=== PATIENT | female | born 1965 | race Caucasian/White ===

== ENCOUNTER → 2018-06-29 10:28 | Outpatient (CLI) | payer OTHER, SELFPAY | PROVIDERS: Family Provider Physician Assistant; PCP Physician Assistant; Referring Provider Surgery; Visit Provider Surgery | DX: Z53.9 Procedure and treatment not carried out, unspecified reason (principal) ==

== ENCOUNTER → 2019-01-02 15:01 | Outpatient (CLI) | payer OTHER, SELFPAY ==
--- NOTE | 2019-01-02 15:07 | VDLE_ITS ---
Reason For Study: Right leg edema RIGHT GSV is normal. CFV is compressible, spontaneous, phasic, competent and demonstrates normal augmentation. FV is compressible, spontaneous, phasic, competent and demonstrates normal augmentation. POP V is compressible, spontaneous, phasic, competent and demonstrates normal augmentation. T/P Trunk is compressible. PTV is compressible. RT PerV is compressible. Large nonvascularized structure noted in the popliteal fossa measuring approximently 2.7 x 0.99 cm. Procedure Exam performed in department. A preliminary report was called and/or faxed to [facility]. Interpretation Summary There is no evidence of right lower extremity deep vein thrombosis. Right great saphenous vein appears patent and compressible segmentally. Irregular right popliteal fossa 2.7 x 0.99cm non- vascular structure suspicous for complex Walker's cyst--clinical correlation would be appropriate Ordering Physician: Trey Sauer Referring Physician: Linwood Maldonado Performed By: Diana Jeffery RVT
== END ==
PROVIDERS: Family Provider Physician Assistant; PCP Physician Assistant; Referring Provider Family Medicine; Visit Provider Family Medicine
DX: R60.9 Edema, unspecified (principal)
CPT/HCPCS: 93971

== ENCOUNTER → 2021-12-31 | Outpatient (CLI) | payer OTHER, SELFPAY ==
[2021-12-31 16:42] LABS: T4 Free Direct 1.19 ng/dL (0.76-1.46); Thyroid Stim Hormone (TSH) 1.41 uIU/mL (0.358-3.74)
== END | disposition home or self-care (01) ==
PROVIDERS: PCP Internal Medicine; Referring Provider Internal Medicine; Visit Provider Internal Medicine
DX: F32.A Depression, unspecified (principal); F41.9 Anxiety disorder, unspecified
CPT/HCPCS: 36415; 84439; 84443

== ENCOUNTER → 2022-01-14 | Outpatient (CLI) | payer OTHER, SELFPAY ==
--- NOTE | 2022-01-14 13:46 | SP.MBSS_ITS ---
Modified Barium Swallow - Patient Information Study Date: 01/14/22 Study Time: 13:00 Direct Billable Minutes: 90 Total Minutes procedure & reportin Diagnosis: Dysphagia (R13.10), GERD (K21.9) Referring Physician: Kiel Whitten Reason for Referral: Objectively assess swallow function, risk for aspiration, and determine recommendations for least restrictive diet textures and compensatory strategies to improve safety of swallow. Medical History: The patient is a 56-year-old female who reports concern for sensation of pharyngeal/esophageal retention of food versus globus sensation from reflux. The patient reports having decreased globus sensation since initiating medication for GERD and anxiety in November 2021. Appetite has also improved since taking medications. She denied coughing when consuming food or drink. PMH includes GERD, Swallowing difficulty, Early satiety, Loss of appetite, Anxiety and depression, and Hypertension. Current Diet Ordered: Regular textures / Thin liquids Dentition: WNL Mental Status: WNL Respiratory Status: Oxygenating on Room Air - Penetration-Aspiration Scale Penetration-Aspiration Scale: OBJECTIVE ASSESSMENT OF SWALLOW FUNCTION (QUANTITATIVE ? PER TRIAL): PENETRATION / ASPIRATION SCALE (ZHOU): 1 = does not enter airway 2 = enters airway/above vocal folds/ejected 3 = enters airway/above vocal folds/not ejected 4 = enters airway/contacts vocal folds/ejected 5 = enters airway/contacts vocal folds/not ejected 6 = enters airway/below vocal folds/ejected 7 = enters airway/below vocal folds/not ejected despite effort 8 = enters airway/below vocal folds/no effort VIDEOFLOROSCOPIC SCALE SCORE (ZHOU): Grade I = aspiration of material that has penetrated into the laryngeal vestibule, intact cough reflex Grade II = aspiration < 10 % of the bolus, intact cough reflex Grade III = aspiration of < 10 % of the bolus, reduced cough reflex or aspiration of > 10 % of the bolus, intact cough reflex Grade IV = aspiration of > 10 % of the bolus, reduced cough reflex - Penetration-Aspiration Scale Score Thin Liquid via teaspoon Result: 1= does not enter airway Thin Liquid via teaspoon Trial 2 Result: 1= does not enter airway Thin Liquid via small single sip from cup Result: 1= does not enter airway Thin Liquid via sequential sips from cup Result: 2= enter airway/above vocal folds/ejected [place] Thick Liquid via small single sip from cup Result: 1= does not enter airway [place] Thick Liquid via small single sip from cup Result: 1= does not enter airway Pudding via teaspoon with esophageal screen Result: 1= does not enter airway Thin liquid via straw with esophageal screen Result: 1= does not enter airway 1/2 Cookie with esophageal screen Result: 1= does not enter airway - Oral Phase Labial Seal: No Labial Escape Tongue Control During Bolus Hold: Posterior escape of less than half of bolus Bolus Preparation/Mastication: Timely and efficient chewing and mashing Bolus Transport/Lingual Motion: Brisk tongue motion Oral Residue: Trace residue lining oral structures - Pharyngeal Phase Initiation of Pharyngeal Swallow: Bolus head at posterior laryngeal surgace of epiglottis Soft Palate Elevation: No bolus between soft palate and pharyngeal wall Laryngeal Elevation: Comp. Superior move thyroid cart w/comp. apprx arytenoid cart-epig pet Anterior Hyoid Excursion: Complete anterior movement Epiglottic Movement: Complete inversion Laryngeal Vestibule Closure at Height of Swallow: Incomplete; narrow column of air/contrast in laryngeal vestibule - trace laryngeal penetration with full ej ection sequential thin Pharyngeal Stripping Wave: Present - complete Pharyngoesophageal Segment Opening: Complete distension and complete duration; no obstruction of flow Tongue Base Retraction: Trace column of contrast between tongue base & post. pharyngeal wall Pharyngeal Residue: Trace residue within or on pharyngeal structures - Esophageal Phase Esophageal Clearance: Esophageal retention - Diagnosis/Impression Diagnosis: Oropharyngeal swallow function WNL Impression: The patient presents with oropharyngeal swallow function grossly WNL. Min posterior loss of thin liquids to the posterior surface of the epiglottis prior to swallow onset. The patient demonstrates good airway closure throughout the study. No aspiration observed. Trace laryngeal penetration with full ejection of sequential sips of thin liquids via cup. Trace retention of pudding in upper esophagus. Mild esophageal retention of pudding and cookie in mid esophagus. Thin liquid wash was used to effectively clear mild retention of pudding contrast. - Recommendations Diet: Regular Textures, Thin Liquids Compensatory Strategies: Small Bites, Small Sips, Slow Rate, Alternate bites/solids and sips/liquids, Sitting upright, Remain sitting upright for 30 minutes after PO intake Recommend Repeat Modified Barium Swallow: No Need for Skilled Speech Therapy Services: No Recommended Referrals: GI Consult - Follow up with PCP, mild esophageal retention effectively cleared with liquid wash - continued management of reflux. Consider GI consult to address mild deficits in esophageal clearance. Education Completed: 1. Described result of evaluation., 2. Pt understands evaluation & agrees with goals and treatment plan., 4. Family/caregivers understand evaluation & agree w/ goals & tx plan. - Status Active ST Patient: Active - Contact Information [facility] Speech Therapy:: Vika Henson M.A. [facility] Speech-Language Pathologist [facility] [address] [place] [address] [email or web address] [phone] 01/14/22 13:59
== END | disposition home or self-care (01) ==
PROVIDERS: PCP Internal Medicine; Visit Provider Internal Medicine
DX: R13.10 Dysphagia, unspecified (principal)
CPT/HCPCS: 74230; 92611

== ENCOUNTER → 2022-01-19 | Outpatient (CLI) | payer OTHER, SELFPAY ==
--- NOTE | 2022-01-19 11:52 | NM_ITS ---
CLINICAL: 56-year-old female with history of anorexia and early satiety. SEMI-SOLID PHASE 99m Tc SULFUR COLLOID GASTRIC EMPTYING STUDY COMPARISON: None available FINDINGS: The patient was administered 1.0 mCi of 99m Tc sulfur colloid mixed with oatmeal and consumed per os. Image acquisitions in the anterior-posterior projections were obtained for 60 minutes. There is prompt visualization of the stomach. There is no gastroesophageal reflux identified. The T ? emptying was calculated to be 16.66 minutes, (Normal: 12-56 minutes). NM/Gastric Emptying Study IMPRESSION: 1. NORMAL 99m Tc sulfur colloid semi-solid phase (oatmeal) gastric emptying imaging examination. A. There is normal and preserved semi-solid phase gastric emptying compared to normal controls. (Narda et al, J Nucl Med Tech 38: 186, 2010). Electronically Signed: Troy Nuno, at 10:42 EST ,
== END | disposition home or self-care (01) ==
PROVIDERS: PCP Internal Medicine; Visit Provider Internal Medicine
DX: R63.0 Anorexia (principal); R68.81 Early satiety
CPT/HCPCS: 78264; A9541

== ENCOUNTER → 2022-02-09 | Outpatient (CLI) | payer OTHER, SELFPAY ==
--- NOTE | 2022-02-09 15:07 | BI_ITS ---
MAMMOGRAPHY - BILATERAL SCREENING REASON FOR EXAM: Female, 56 years old. Routine annual screening examination. PERTINENT HISTORY: Non-contributory. TECHNIQUE: Digital bilateral breast alejandra (3D mammographic acquisition) in the CC and MLO projections. 2-D mediolateral oblique (MLO) and craniocaudad (CC) views of both breasts were obtained. CAD: Full Field Digital Mammography with Computer Added Detection was performed. COMPARISON: Comparison is made with prior outside examination dated 01/29/2021 and 01/24/2020. FINDINGS: Breast Composition: There are scattered areas of fibroglandular density. There are no dominant masses or suspicious calcifications. Stable small benign-appearing bilateral axillary lymph nodes No other significant abnormalities are identified. There has been no significant change since the prior study. BI/SCRN MAMM (CAD)W/ALEJANDRA BILAT IMPRESSION: Stable bilateral screening mammogram. Yearly follow-up mammogram recommended. (A) ASSESSMENT CATEGORY: BIRADS Category 2: Benign. A letter regarding these results will be sent to the patient by the facility within 30 days. Approximately 10% of breast cancers are not detected by mammography. A normal mammogram should not delay biopsy of a clinically suspicious abnormality. [id number] Electronically Signed: Dusty Camilo MD at 8:13 EST ,
== END | disposition home or self-care (01) ==
LOC: OPBI 15:06
PROVIDERS: PCP Internal Medicine; Visit Provider Registered Nurse
DX: Z12.31 Encounter for screening mammogram for malignant neoplasm of breast (principal)
CPT/HCPCS: 77063; 77067

== ENCOUNTER → 2022-12-05 | Outpatient (CLI) | payer OTHER, SELFPAY ==
[2022-12-05 15:15] LABS: Absolute Lymphocyte Count 2.23 X10^3/uL (0.83-4.51); Absolute Neutrophil Count 2.8 X10^3/uL (2.0-7.7); Basophil# 0.03 X10^3/uL; Basophil% 0.5 % (0-1); Eosinophil# 0.15 X10^3/uL; Eosinophils% 2.6 % (0-5); Hematocrit 41.3 % (37-47); Hemoglobin 13.2 g/dL (12.0-15.0); Lymphocyte # 2.23 X10^3/ul (0.83-4.51); Lymphocyte % 38.9 % (19-41); Mean Corpuscular Hgb 28.3 pg (27.0-32.0); Mean Corpuscular Volume 88.4 fL (81-99); Mean Platelet Vol. 10.1 fl (6.2-12.0); Monocyte# 0.54 X10^3/uL; Monocyte% 9.4 % (0-10); NRBC Flagged by Analyzer 0 % (0-5); Neutrophil # 2.77 X10^3/uL (2.7-7.7); Neutrophil % 48.3 % (47-70); Platelet Count 347 K/mm3 (150-450); RBC Distribution Width CV 12.6 % (11.6-14.6); RBC Distribution Width SD 40.6 fl (35.1-43.9); Red Blood Count 4.67 M/mm3 (4.2-5.4); White Blood Count 5.7 K/mm3 (4.4-11.0)
[2022-12-05 15:55] LABS: ALB/GLOB Ratio 1.3 RATIO (0.9-2.4); AST(SGOT) 15 U/L (15-37); Alanine Aminotransfer ALT/SGPT 26 U/L (13-56); Albumin, Serum 4.1 g/dL (3.2-5.0); Alkaline Phosphatase 58 U/L (45-117); Anion Gap 6 (5-15); BUN 25 mg/dL (7-18); BUN/Creat Ratio 34.2 RATIO (10-20); Calcium,Total 9.5 mg/dL (8.5-10.1); Chloride 105 mmol/L (98-107); Cholesterol 222 mg/dL (200); Creatinine, Serum 0.73 mg/dL (0.55-1.02); EST Glomerular Filtration Rate 87 mL/min (>60); Est Glom Filt Rate - Afr Amer 105 mL/min (>60); Globulin 3.2 g/dL (2.2-4.2); Glucose 75 mg/dL (74-106); High Density Lipoprotein 75 mg/dL; Protein, Total 7.3 g/dL (6.4-8.2); Sodium Level 138 mmol/L (136-145); Triglycerides 91 mg/dL; Very Low Density Lipoprotein 18 mg/dL (5-40)
== END | disposition home or self-care (01) ==
LOC: BIMLAB 11:53
PROVIDERS: PCP Internal Medicine; Referring Provider Internal Medicine; Visit Provider Internal Medicine
DX: I10 Essential (primary) hypertension (principal)
CPT/HCPCS: 36415; 80053; 80061; 85025

== ENCOUNTER → 2023-03-17 | Outpatient (CLI) | payer BC, SELFPAY ==
--- NOTE | 2023-03-17 10:21 | BI_ITS ---
MAMMOGRAPHY - BILATERAL SCREENING REASON FOR EXAM: Female, 57 years old. Routine annual screening examination. PERTINENT HISTORY: Non-contributory. TECHNIQUE: Digital bilateral breast alejandra (3D mammographic acquisition) in the CC and MLO projections. 2-D mediolateral oblique (MLO) and craniocaudad (CC) views of both breasts were obtained. CAD: Full Field Digital Mammography with Computer Added Detection was performed. COMPARISON: Comparison is made with prior study February 09, 2022. FINDINGS: Breast Composition: There are scattered areas of fibroglandular density. There are no dominant masses or suspicious calcifications. Stable small benign appearing bilateral axillary lymph nodes. No other significant abnormalities are identified. There has been no significant change since the prior study. BI/SCRN MAMM (CAD)W/ALEJANDRA BILAT IMPRESSION: Stable bilateral screening mammogram. Yearly follow-up mammogram recommended. (A) ASSESSMENT CATEGORY: BIRADS Category 2: Benign. A letter regarding these results will be sent to the patient by the facility within 30 days. Approximately 10% of breast cancers are not detected by mammography. A normal mammogram should not delay biopsy of a clinically suspicious abnormality. [id number] Electronically Signed: Dusty Camilo MD at 13:49 EST ,
--- OUTSIDE RECORDS SUMMARY | 2023-03-17 10:24 | XMS RPT_ITS | CCD ---
Author Name Unknown Address [facility] [address] [place] [address] Organization [facility] Care Team Providers Care Motivational Speaker Name Role Phone MAHDI, EUNICE Unavailable Unavailable MAHDI, EUNICE Unavailable Unavailable MAHDI, EUNICE Unavailable Unavailable MAHDI, EUNICE Unavailable Unavailable Darius Maldonado PA-C Primary Care Provider [phone] Darius Maldonado PA-C Primary Care Provider [phone] Darius Maldonado PA-C Primary Care Provider [phone] Allergies Allergy Classification Reported Allergen(s) Allergy Type Date of Onset Reaction(s) Facility (14 sources) Lisinopril Drug Allergy 9 Intolerance [facility] Work Phone: (14 sources) Seasonal allergy Allergy to substance 9 Other: See Comments [facility] Work Phone: Medications Current Medications Medication Drug Class(es) Dates Sig (Normalized) Sig (Original) LORazepam 0.5 mg oral tablet (2 sources) Benzodiazepine Start: 12-17-2021 End: 12-24-2021 take 1 tablet by mouth twice daily as needed for anxiety LORazepam (ATIVAN) 0.5 mg Indications: Globus pharyngeus , Chronic anxiety Take 1 tablet by mouth twice daily as needed (anxiety/ pressure in throat) for up to 7 days. 14 tablet 0 12/17/2021 12/24/2021 Active Completed/Discontinued Medications Medication Drug Class(es) Dates Sig (Normalized) Sig (Original) DAILY MULTI-VITAMINS/IRON TAB (14 sources) Start: 02-03-2005 DAILY MULTI-VITAMINS/IRON TAB 24 hr desvenlafaxine succinate 25 mg extended release oral tablet (2 sources) Serotonin and Norepinephrine Reuptake Inhibitor Start: 12-10-2021 End: 12-13-2021 take 1 tablet by mouth once daily desvenlafaxine ER (PRISTIQ) 25 mg 24 hr tablet Indications: Chronic anxiety Take 1 tablet by mouth once daily. 30 tablet 2 12/10/2021 12/13/2021 Discontinued Problems Active Problems Problem Classification Problem Date Documented Date Episodic/Chronic Abdominal hernia (14 sources) Diaphragmatic hernia; Translations: [Diaphragmatic hernia without obstruction or gangrene] 11-23-2007 Episodic Abdominal pain (3 sources) Right upper quadrant pain; Translations: [Right upper quadrant pain] Episodic Anxiety disorders (17 sources) Chronic anxiety; Translations: [Anxiety disorder, unspecified] Onset: 09-13-2016 Chronic Cardiac dysrhythmias (2 sources) Bradycardia; Translations: [Bradycardia, unspecified] Episodic Conduction disorders (16 sources) Left bundle branch block; Translations: [Left bundle-branch block, unspecified] Onset: 11-04-2016 11-04-2016 Chronic Diabetes mellitus without complication (2 sources) Hyperglycemia; Translations: [Hyperglycemia, unspecified] Episodic Disorders of lipid metabolism (2 sources) Mixed hyperlipidemia; Translations: [Mixed hyperlipidemia] Chronic Essential hypertension (18 sources) Essential hypertension; Translations: [Essential (primary) hypertension] Onset: 07-13-2018 Chronic Immunizations and screening for infectious disease (1 source) Needs influenza immunization; Translations: [Encounter for immunization] Episodic Miscellaneous mental health disorders (14 sources) Chronic insomnia; Translations: [Psychophysiologic insomnia] Onset: 09-19-2016 09-19-2016 Chronic Nutritional deficiencies (16 sources) Vitamin D deficiency; Translations: [Vitamin D deficiency, unspecified] Onset: 09-13-2016 Chronic Other circulatory disease (1 source) Feeling of lump in throat; Translations: [Other specified symptoms and signs involving the circulatory and respiratory systems] Episodic Other connective tissue disease (2 sources) Swelling of bilateral feet; Translations: [Other specified soft tissue disorders] Episodic Other nutritional; endocrine; and metabolic disorders (14 sources) Constitutional obesity; Translations: [Other obesity] Onset: 03-05-2015 03-05-2015 Chronic Other screening for suspected conditions (not mental disorders or infectious disease) (1 source) Patient encounter status; Translations: [Encounter for screening mammogram for malignant neoplasm of breast] 02-01-2023 Episodic Polina-; endo-; and myocarditis; cardiomyopathy (except that caused by tuberculosis or sexually transmitted disease) (17 sources) Dilated cardiomyopathy; Translations: [Dilated cardiomyopathy] Onset: 12-06-2019 Chronic Pulmonary heart disease (17 sources) Pulmonary hypertension, unspecified; Translations: [Other chronic pulmonary heart diseases] Onset: 12-06-2019 Chronic Unclassified (1 source) Unknown / UNK(Unknown) Onset: 12-07-2016 Past or Other Problems Problem Classification Problem Date Documented Da te Episodic/Chronic Other and unspecified benign neoplasm (14 sources) Adenomatous polyp of colon ; Translations: [Benign neoplasm of transverse colon] Onset: 09-13-2016 12-09-2019 Episodic Other and unspecified benign neoplasm (14 sources) History of polyp of colon; Translations: [Personal history of colonic polyps] Onset: 07-13-2018 07-13-2018 Episodic Other gastrointestinal disorders (1 source) Intra-abdominal and pelvic swelling, mass and lump, unspecified site; Translations: [Intra-abdominal and pelvic swelling, mass and lump, unspecified site] Onset: 11-17-2016 Episodic Results Test Name Value Interpretation Reference Range Facil ity Vital Signs Date Time Vital Sign Value Performing Clinician Faci lity 12-10-2021 08:38-0400 Diastolic blood pressure 82 mm[Hg] NA Maldonado PA-C Work Phone: [facility] 12-10-2021 08:38-0400 Heart rate 66 /min NA Maldonado PA-C Work Phone: [facility] 12-10-2021 08:38-0400 Respiratory rate 16 /min NA Maldonado PA-C Work Phone: [facility] 12-10-2021 08:38-0400 SaO2% (BldA) [Mass fraction] 98 % NA Maldonado PA-C Work Phone: [facility] 12-10-2021 08:38-0400 Systolic blood pressure 148 mm[Hg] NA Maldonado PA-C Work Phone: [facility] 08-13-2021 14:27-0400 Diastolic blood pressure 84 mm[Hg] Sasha Murrieta APRN.CNP Work Phone: [facility] 08-13-2021 14:27-0400 Heart rate 54 /min Sasha Haagen MOLECULAR BIOLOGY SCIENTIST.[employer] Work Phone: [facility] 08-13-2021 14:27-0400 Systolic blood pressure 147 mm[Hg] Sasha Haagen MOLECULAR BIOLOGY SCIENTIST.[employer]IFTER [employer]ON Work Phone: [facility] 08-13-2021 13:25-0400 Body height 160 cm Sasha Haagen MOLECULAR BIOLOGY SCIENTIST.[employer]ON Work Phone: [facility] 08-13-2021 13:25-0400 Respiratory rate 18 /min Sasha Haagen MOLECULAR BIOLOGY SCIENTIST.[employer] Work Phone: [facility] 08-13-2021 13:25-0400 SaO2% (BldA) [Mass fraction] 96 % Sasha Cowanagen MOLECULAR BIOLOGY SCIENTIST.[employer]ON Work Phone: [facility] 06-25-2021 14:24-0400 Diastolic blood pressure 82 mm[Hg] Tee Pendemma MOLECULAR BIOLOGY SCIENTIST.[employer] Work Phone: [facility] 06-25-2021 14:24-0400 Systolic blood pressure 144 mm[Hg] Tee Corine MOLECULAR BIOLOGY SCIENTIST.[employer] Work Phone: [facility] 06-25-2021 14:05-0400 Body temperature 98.4 [degF] Tee Corine MOLECULAR BIOLOGY SCIENTIST.[employer] Work Phone: [facility] 06-25-2021 14:05-0400 Heart rate 63 /min Tee Corine MOLECULAR BIOLOGY SCIENTIST.[employer] Work Phone: [facility] 06-25-2021 14:05-0400 Respiratory rate 20 /min Tee Corine MOLECULAR BIOLOGY SCIENTIST.[employer]IF[employer]ON Work Phone: [facility] 06-25-2021 14:05-0400 SaO2% (BldA) [Mass fraction] 98 % Tee Pool MOLECULAR BIOLOGY SCIENTIST.[employer]TER [employer]ON Work Phone: [facility] Encounters Encounter Date Encounter Type Care Provider Facility Start: 02-01-2023 ambulatory Darius lyons PA-C Work Phone: [facility] [place] Start: 12-31-2021 End: 12-31-2021 Subsequent hospital visit by physician [facility] Work Phone: Radiology Procedures Date Procedure Procedure Detail Performing Clinician Start: 12-31-2021 Us abdominal real ti me w/image limited Darius Linwood Maldonado PA-C Work Phone: Start: 12-10-2021 INFLUENZA VACCINE QUADRIVALENT 6 MO - 64 YRS IM Darius Linwood Maldonado PA-C Work Phone: Start: 01-29-2021 Mammography NA Joel LEPE Work Phone: Start: 12-04-2019 Lipid 1996 panel - S forrest or Plasma [facility] 2 Work Phone: Start: 08-01-2018 Colonoscopy NA Joel LEPE Work Phone: Start: 11-02-2016 Adult depression scr eening assessment NA Joel [place] Work Phone: Plan of Treatment Date Care Activity Detail Author Start: 12-22-2024 DIABETES SCREEN DIABETES SCREEN [facility] Start: 12-22-2024 Diabetes Screening Diabetes Screenin g [facility] Start: 12-03-2024 Lipid 1996 panel - S forrest or Plasma Lipid Screening [facility] Start: 12-03-2024 LIPID SCREEN LIPID SCREEN [facility] Start: 08-07-2024 DIABETES SCREEN DIABETES SCREEN [facility] Start: 08-02-2023 Colonoscopy COLONOSCOPY [facility] Start: 08-02-2023 COLORECTAL CANCER SCREENING COLORECTAL CANCER SCREENING [facility] Start: 12-17-2022 ANNUAL PCP TEAM CAP MAKER JAMEY DISEASE VISIT ANNUAL PCP TEAM CHRONIC DISEASE VISIT [facility] Start: 12-10-2022 ANNUAL PCP TEAM CAP MAKER JAMEY DISEASE VISIT ANNUAL PCP TEAM CHRONIC DISEASE VISIT [facility] Start: 12-10-2022 COVID-19 VACCINE (4 - Booster for Moderna series) COVID-19 VACCINE (4 - Booster for Moderna series) [facility] Immunizations Immunization Date Immunization Notes Care Provider Fa cility 12-10-2021 influenza, injectabl e, quadrivalent, contains preservative NA Joel LEPE Work Phone: [facility] 12-10-2021 influenza virus vaccine, unspecified formulation [facility] 2 Work Phone: [facility] 04-08-2020 COVID-19 vaccine, fu ll dose (MODERNA) NA Maldonado PA-C Work Phone: [facility] Work Phone: 03-11-2020 COVID-19 vaccine, fu ll dose (MODERNA) NA Maldonado PA-C Work Phone: [facility] Work Phone: 01-04-2020 influenza, injectabl e, quadrivalent, contains preservative NA Maldonado PA-C Work Phone: [facility] 03-29-2017 influenza, injectabl e, quadrivalent, contains preservative NA Maldonado PA-C Work Phone: [facility] Work Phone: 01-09-2013 influenza virus vaccine, unspecified formulation NA Maldonado PA-C Work Phone: [facility] 01-28-2010 influenza virus vaccine, unspecified formulation NA Maldonado PA-C Work Phone: [facility] Work Phone: 12-12-2008 influenza virus vaccine, live, attenuated, for intranasal use NA Maldonado PA-C Work Phone: [facility] Work Phone: 01-25-2008 influenza virus vaccine, live, attenuated, for intranasal use NA Maldonado PA-C Work Phone: [facility] Work Phone: 01-12-2007 influenza virus vaccine, unspecified formulation NA Maldonado PA-C Work Phone: [facility] Work Phone: Payers Date Payer Category Payer Private Health Insurance MARTY BASHIR [id number] 2021-[facility] [phone] [facility] [id number] CHRISTEN ESPINAL [phone] Open Access [id number] 2021 Private Health Insurance MARTY JAMES OAP [id number] 2021-Present [phone] [address] [facility] [place] [address] Open Access [id number] 2020 Unknown [employer] BLUE CARD PPO OOS [id number] 2020-Present [phone] [address] [place] [address] PPO [id number] Social History Date Type Detail Facility Start: 12-10-2021 Tobacco smoking status NHIS Ex-smoker [facility] Start: 01-29-2021 End: 12-10-2021 Alcohol intake Current drinker of alcohol (finding) [facility] Start: 01-29-2021 End: 03-25-2022 Alcohol intake [facility] Start: 07-07-2010 History SDOH Alcohol Comment One to Two Drinks per Week [facility] Start: 07-07-2010 End: 12-10-2021 Tobacco Comment Quit [facility] Start: 1965 Sex Assigned At Not on file [facility] Start: 06-15-2021 End: 12-10-2021 Exposure to SARS-CoV-2 (event) Not sure [facility] Work Phone: History of tobacco use Current smoker [facility] Start: 12-10-2021 Tobacco use and exposure Smokeless tobacco non-user [facility] Start: 12-17-2021 History SDOH Alcohol Frequency 4 [facility] Start: 12-17-2021 History SDOH Alcohol Std Drinks 1 [facility] Start: 12-17-2021 History SDOH Social Connections Phone 5 [facility] Start: 12-17-2021 History SDOH Social Connections Mormon 3 [facility] Start: 12-17-2021 History SDOH Physical Activity DPW 0 [facility] Start: 12-17-2021 History SDOH Transport Med 2 [facility] Start: 12-16-2021 End: 03-25-2022 Social connection and isolation panel [facility] Frequency of Social Gatherings with Friends and Family Not on file [facility] Do you belong to any clubs or organizations such as orthodox groups, unions, fraternal or athletic groups, or school groups? Yes [facility] Are you now , , , , never or living with a partner? [facility] How often to you hav e a drink containing alcohol? 2-3 time sa week [facility] How many standard dr inks containing alcohol do you have on a typical day? 1 or 2 [facility] How often do you hav e 6 or more drinks on 1 occasion? Never [facility] Do you feel stress - tense, restless, nervous, or anxious, or unable to sleep at night because your mind is troubled all the time - these days [OSQ] To some extent [facility] (I/We) worried wheth er (my/our) food would run out before (I/we) got money to buy more. Never true [facility] In the past 12 month s, was there a time when you were not able to pay the mortgage or rent on time? No [facility] Start: 10-11-2020 Gender identity Identifies as female gender (finding) [facility] Start: 12-06-2019 Sexual orientation Heterosexual (finding) [facility] Clinical Notes 11-01-2016 to 02-01-2023 Zunilda Banuelos RDCA - 12/31/2021 8:30 AM EDTTelephone Encounter - Nicole Redman RN - 12/24/2021 10:28 AM EDTTelephone Encounter - Huyen Segovia RN - 12/24/2021 9:44 AM EDT Note Date & Type Note Facility 02-01-2023 Note Patient Outreach (IN TMMN) VALENTINA GALVAN ([id number]) 1965 F Date Time Provider Department 02/01/23 Darius MALDONADO During your visit today, we recorded the following information about you: Allergies As of Date: 02/01/2023 Noted Allergy Reaction LISINOPRIL 08/16/2018 5 - Intolerance Comments: Cough SEASONAL ALLERGIES 07/11/2018 14 - Other: See Comments Comments: watery eyes, runny nose and cough mostly in spring and summer Date Reviewed: 12/10/2021 Reviewed by: Tricia Connors Ma - Fully Assessed Visit Diagnosis:Encounter for screening mammogram for breast cancer [Z12.31] Order(s):[facility] SCREENING [[id number]] Order #: [id number] FUTURE Prescriptions as of 02/06/2023 - PARoxetine (PAXIL) 10 mg tablet Take 1 tablet by mouth once daily. - naproxen sodium (ALEVE) 220 mg cap Take 2 capsules by mouth once daily. - traZODone (DESYREL) 100 mg tablet Take 1 tablet by mouth daily at bedtime. - losartan (COZAAR) 100 mg tablet Take 1 tablet by mouth once daily. - hydroCHLOROthiazide (HYDRODIURIL, ESIDRIX) 12.5 mg capsule Take 1 capsule by mouth once daily. - DAILY MULTI-VITAMINS/IRON TAB Problem List As Of Date 02/01/2023 Noted Resolved DIAPHRAGMATIC HERNIA [K44.9] Special screening for malignant neoplasms, colo*09/25/2014 09/25/2014 Constitutional obesity [E66.8] 03/05/2015 Chronic anxiety [F41.9] 09/13/2016 Adenomatous polyp of transverse colon [D12.3] 09/13/2016 Vitamin D deficiency [E55.9] 09/13/2016 Chronic insomnia [F51.04] 09/19/2016 Pelvic mass [R19.00] 11/01/2016 11/17/2016 LBBB (left bundle branch block) [I44.7] 11/04/2016 Essential hypertension [I10] 07/13/2018 History of colonic polyps [Z86.010] 07/13/2018 Dilated cardiomyopathy (HCC) [I42.0] 12/06/2019 Mild pulmonary hypertension (HCC) [I27.20] 12/06/2019 Encounter Status:Closed by Page Mage, PRODUSER on 02/06/23 [facility] 03-02-2022 Note Patient Outreach (IN TMMN) VALENTINA GALVAN ([id number]) 1965 F Date Time Provider Department 03/02/22 Darius MALDONADO During your visit today, we recorded the following information about you: Allergies As of Date: 03/02/2022 Noted Allergy Reaction LISINOPRIL 08/16/2018 5 - Intolerance Comments: Cough SEASONAL ALLERGIES 07/11/2018 14 - Other: See Comments Comments: watery eyes, runny nose and cough mostly in spring and summer Date Reviewed: 12/10/2021 Reviewed by: Tricia Connors Ma - Fully Assessed Visit Diagnosis:Encounter for screening mammogram for breast cancer [Z12.31] Order(s):[facility] SCREENING [[id number]] Order #: [id number] FUTURE Prescriptions as of 03/07/2022 - PARoxetine (PAXIL) 10 mg tablet Take 1 tablet by mouth once daily. - naproxen sodium (ALEVE) 220 mg cap Take 2 capsules by mouth once daily. - traZODone (DESYREL) 100 mg tablet Take 1 tablet by mouth daily at bedtime. - losartan (COZAAR) 100 mg tablet Take 1 tablet by mouth once daily. - hydroCHLOROthiazide (HYDRODIURIL, ESIDRIX) 12.5 mg capsule Take 1 capsule by mouth once daily. - DAILY MULTI-VITAMINS/IRON TAB Facility-Administered Medications as of 03/07/2022 - perflutren lipid microspheres 1.3 mL in NaCl (PF) 0.9% 10 mL injection (DEFINITY) - sodium chloride 0.9 % (flush) 10 mL (BD POSIFLUSH) Problem List As Of Date 03/02/2022 Noted Resolved DIAPHRAGMATIC HERNIA [K44.9] Special screening for malignant neoplasms, colo*09/25/2014 09/25/2014 Constitutional obesity [E66.8] 03/05/2015 Chronic anxiety [F41.9] 09/13/2016 Adenomatous polyp of transverse colon [D12.3] 09/13/2016 Vitamin D deficiency [E55.9] 09/13/2016 Chronic insomnia [F51.04] 09/19/2016 Pelvic mass [R19.00] 11/01/2016 11/17/2016 LBBB (left bundle branch block) [I44.7] 11/04/2016 Essential hypertension [I10] 07/13/2018 History of colonic polyps [Z86.010] 07/13/2018 Dilated cardiomyopathy (HCC) [I42.0] 12/06/2019 Mild pulmonary hypertension (HCC) [I27.20] 12/06/2019 Encounter Status:Closed by JAYSON PRODUSER on 03/07/22 [facility] 12-31-2021 History of Present illness Narrative Radiology Service Progress Note PATIENT NAME: Valentina Galvan DATE OF SERVICE: December 31, 2021 TIME: 11:08 AM PATIENT IDENTITY VERIFICATION COMPLETED USING TWO (2) IDENTIFIERS: Name and Date of confirmed by patient verbally. FALL SCREENING: Has the patient had 2 falls in the last year or 1 fall with injury or currently using an Ambulatory Assistive Device (Walker, Cane, Wheelchair, Crutches, etc.)? No PATIENT GENDER DATA: Female. status: : No status: NO. PATIENT RELEVANT IMPLANT DATA REVIEWED: Not Applicable RADIOLOGY DEPARTMENT: Ultrasound PERIPHERAL IV DATA: Not applicable SIGNED BY: Zunilda Banuelos RDMS RVT December 31, 2021 11:08 AM documented in this encounter [facility] 12-24-2021 Miscellaneous Notes Ultrasound scheduled for 12/31/2021. Nicole Redman RN Patient calls back and states that she will get the ultrasound done to make sure everything is ok. Patient transferred to master scheduler to set up ultrasound appointment. Huyen Segovia RN TC to pt, she states she did try the Ativan and found it somewhat helpful. She states she feels like she has slowly turned a corner today, not have much of the sensation anymore. She feels it's more related to heartburn. She was on the other line so she will call office back to schedule RUQ us. Kendall Hager LPN Did she try the Ativan? Is there any difficulty swallowing? EGD does look not at the larynx, she would need laryngoscopy for direct visualization. Telephone on 12/22/21 US ABD RT UPPER QUADRANT Thanks, Cristian Maldonado PA-C Patient calls to ask if provider would recommends she try taking Prilosec 40 mg daily d/t symptoms not improving. She continues to have RUQ pain/weakness and globus pharyngeus. Patient asking about having an endoscope completed. Notified patient that lab results are still pending. Nicole Redman RN documented in this encounter [facility] 12-17-2021 History of Present illness Narrative WUTt video visit was used for evaluation of this patient. Location of patient: [place] Patient was offered a virtual/telemedicine appointment in lieu of an office visit due to recommendations to reduce patient exposure to COVID-19. Patient is aware of limitations of performing the visit without a face to face visit in the office setting and agrees. 8:06 AM 56 year old female with c/o nausea Nausea started night of last visit, no vomiting but almost No fever or chills Has had some shaking like if she were ill Feels uvula in back of throat. Feels something that feels obstruction lower in esophagus. Not hungry, early satiety Eating like normal, three times a day: normal size portions but not finishing them completely. 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 No black or tarry stools. Had some bright red on toilet paper once, no rectal pain. Worries about gastroparesis from internet search. Omeprazole 20mg AC day #4 with a l Pain in right of belly button, feel superficial like skin tenderness but radiates to back Recently resumed paroxetine and Trazedone Asking for H.Pylori Takes Aleve 2 tabs daily. Worried about scar tissue from prior surgery causing obstruction. Feels a little bit better this morning HISTORIES FAMILY HISTORY Problem Relation Age of Onset Hypertension Mother Hyperlipidemia Mother Psychiatry Mother depression Alzheimer's Disease Mother Hypertension Father Cancer Father COLON/skin Colon Cancer Father Stroke Maternal Grandmother Cancer Maternal Grandfather skin Hearing Loss Paternal Grandfather Cancer Paternal Grandfather skin Cancer Maternal Uncle liver Hypertension Sister PAST MEDICAL HISTORY Diagnosis Date Acute gastritis without mention of hemorrhage Allergic rhinitis Colon polyps 04/08/[address] [facility] [address] Monk Diaphragmatic hernia without mention of obstruction or gangrene HTN (hypertension) IBS (irritable bowel syndrome) Internal hemorrhoid Left bundle branch block Other anxiety states PMH - PAST MEDICAL HISTORY OF back discomfort and left knee PAST SURGICAL HISTORY Procedure Laterality Date DELIVERY+ CARE had two COLONOSCOPY FLX DX W/COLLJ SPEC WHEN PFRMD 09/25/14 Colonoscopy COLONOSCOPY FLX DX W/COLLJ SPEC WHEN PFRMD 04/08/2015 Colonoscopy (MAC) COLONOSCOPY FLX DX W/COLLJ SPEC WHEN PFRMD 08/01/2018 Colonoscopy ESOPHAGOGASTRODUODENOSCOPY TRANSORAL DIAGNOSTIC 12/14/05 EGD HYSTERECTOMY 10/2016 ovaries remain LIG/TRNSXJ FLP TUBE ABDL/VAG APPR UNI/BI Social History Tobacco Use Smoking status: Former Smokeless tobacco: Never Tobacco comments: Quit Vaping Use Vaping Use: Never used Substance Use Topics Alcohol use: Yes Alcohol/week: 5.0 standard drinks Types: 2 Glasses of Wine (5oz) per week Comment: One to Two Drinks per Week Drug use: No ACTIVE PROBLEM LIST Diaphragmatic Hernia Without Mention of Obstruction Or Gangrene Constitutional Obesity Chronic Anxiety Adenomatous Polyp of Transverse Colon Vitamin D Deficiency Chronic Insomnia Lbbb (Left Bundle Branch Block) Essential Hypertension History of Colonic Polyps Dilated Cardiomyopathy (Hcc) Mild Pulmonary Hypertension (Hcc) Current Outpatient Medications Medication Sig Dispense Refill PARoxetine (PAXIL) 10 mg tablet Take 1 tablet by mouth once daily. 30 tablet 5 naproxen sodium (ALEVE) 220 mg cap Take 2 capsules by mouth once daily. traZODone (DESYREL) 100 mg tablet Take 1 tablet by mouth daily at bedtime. 30 tablet 2 losartan (COZAAR) 100 mg tablet Take 1 tablet by mouth once daily. 30 tablet 5 hydroCHLOROthiazide (HYDRODIURIL, ESIDRIX) 12.5 mg capsule Take 1 capsule by mouth once daily. 30 capsule 5 DAILY MULTI-VITAMINS/IRON TAB 0 Current Facility-Administered Medications Medication Dose Route Frequency Provider Last Rate Last Admin perflutren lipid microspheres 1.3 mL in NaCl (PF) 0.9% 10 mL injection (DEFINITY) INTRAVENOUS DIRECTED PRN Sasha Murrieta, MOLECULAR BIOLOGY SCIENTIST.[employer] sodium chloride 0.9 % (flush) 10 mL (BD POSIFLUSH) 10 mL INTRAVENOUS DIRECTED PRN Sasha Murrieta APRN.[employer] BP CONTROLLED (<130/80) Never done PAP TESTING due on 10/20/2021 HPV TESTING due on 10/20/2021 MAMMOGRAM due on 01/29/2022 EXAM: LMP 10/23/2016 (Exact Date) Pleasant well appearing woman in no acute distress though anxious. Alert and oriented all spheres. Normal affect and cognition. Speech normal. No deficits to learning or comprehension. Oral membranes moist, pink to lips. Unable to see posterior throat. Speaking in full sentences, no respiratory difficulty Points to RUQ where site of pain is but indicates it is superficial. ASSESSMENT/PLAN: 1. RUQ pain - ICD9: 789.01, ICD10: R10.11 (primary diagnosis) - Begin treatment with Prilosec 20 mg QD - CBC + DIFF - COMP METABOLIC PANEL - LIPASE BLD 2. Globus pharyngeus - ICD9: 784.99, ICD10: R09.89 Short term use to see if heps with globus and rest - LORAZEPAM 0.5 MG TABLET 3. Chronic anxiety - ICD9: 300.00, ICD10: F41.9 - LORAZEPAM 0.5 MG TABLET Has f/u scheduled 23min encounter with 10 minute education on anxiety, globus, physiologic effects of stress, medications Darius Maldonado PA-C documented in this encounter [facility] 12-13-2021 Miscellaneous Notes The following approved medication requests have been transmitted electronically. Requested Prescriptions Signed Prescriptions Disp Refills PARoxetine (PAXIL) 10 mg tablet 30 tablet 5 Sig: Take 1 tablet by mouth once daily. Darius Maldonado PA-C documented in this encounter [facility] 12-10-2021 History of Present illness Narrative 56 year old female with c/o here for follow up and refill medicaitons Dilated cardiomyopathy (hcc) (primary encounter diagnosis) Mild pulmonary hypertension (hcc) Lbbb (left bundle branch block) Essential hypertension Bradycardia Bilateral swelling of feet Hyperlipidemia, mixed Cardiovascular interval hx: 08/27/2021 echo: LV size + LVSF WNL, EF 58 5% 11/11/2016 echo: RVSP 43mmHG consistent with mild pulm hypertension Current meds: HCTZ 12.5mg daily Losartan 100mg daily Use of NTG: n/a Chest pain, arm, jaw pain, neck, or upper back pain suggestive of angina: No. SOB: No Dyspnea with exertion: No orthopnea: No Cough : No racing or irregular heartbeats: No palpitations: No syncopal sx: No Headache: No Unexplainable fatigue No but under a lot of stress which is Leg swelling: mild Nausea: No diaphoresis: No Heartburn: No Claudication: No Smoking: No Following Low cholesterol, high fiber diet? Yes If on statin: muscle aches? N/a If on statin: GI sx or diarrhea? N/a Additional history none. Lab review: Component Latest Ref Rng & Units 10/18/2017 12/04/2019 Total Cholesterol, Nonfasting <200 mg/dL 201 (H) 185 Triglycerides, Nonfasting <150 mg/dL 80 76 HDL Cholesterol, Nonfasting >39 mg/dL 67 75 LDL Cholesterol, Nonfasting <100 mg/dL 118 (H) 95 Non HDL Cholesterol, Nonfasting <130 mg/dL 134 (H) 110 VLDL Cholesterol, Nonfasting <30 mg/dL 16 15 Total Chol/HDL Ratio, Nonfasting <5.10 mg/dL 3.00 2.47 LDL/HDL Ratio, Nonfasting <2.54 mg/dL 1.76 1.27 Component Latest Ref Rng & Units 12/04/2019 08/07/2021 Protein, Total 6.3 - 8.0 g/dL 7.0 Albumin 3.9 - 4.9 g/dL 4.4 Calcium 8.5 - 10.2 mg/dL 9.6 9.5 Bilirubin, Total 0.2 - 1.3 mg/dL 1.0 Alkaline Phosphatase 34 - 123 U/L 47 AST 13 - 35 U/L 23 Glucose 74 - 99 mg/dL 110 (H) 78 BUN 7 - 21 mg/dL 27 (H) 27 (H) Creatinine 0.58 - 0.96 mg/dL 0.67 0.67 Sodium 136 - 144 mmol/L 139 140 Potassium 3.7 - 5.1 mmol/L 3.8 4.0 Chloride 97 - 105 mmol/L 101 104 CO2 22 - 30 mmol/L 30 26 Anion Gap 9 - 18 mmol/L 8 (L) 10 ALT 7 - 38 U/L 19 eGFR- >60 eGFR-All Other Races . >60 Component Latest Ref Rng & Units 10/18/2017 WBC 3.70 - 11.00 k/uL 8.61 RBC 3.90 - 5.20 m/uL 4.50 Hemoglobin 11.5 - 15.5 g/dL 13.0 Hematocrit 36.0 - 46.0 % 40.1 MCV 80.0 - 100.0 fL 89.1 MCH 26.0 - 34.0 pG 28.9 MCHC 30.5 - 36.0 g/dL 32.4 RDW-CV 11.5 - 15.0 % 12.8 Platelet Count 150 - 400 k/uL 345 MPV 9.0 - 12.7 fL 10.5 Absolute nRBC <0.01 k/uL <0.01 Chronic anxiety Having a lot of stress: parents getting older Has to organize caregivers: if doesn't show up has to fill in gap Putting daughter through grad school Son , having baby. Not sleeping like she needs Not exercising. Similar issues to five year ago with lots of pain and Gi issues just on right side- currently active Elevated blood sugar Hemoglobin A1C (%) Date Value 08/07/2021 5.1 ) Vitamin d deficiency No lab HISTORIES FAMILY HISTORY Problem Relation Age of Onset Hypertension Mother Hyperlipidemia Mother Psychiatry Mother depression Alzheimer's Disease Mother Hypertension Father Cancer Father COLON/skin Colon Cancer Father Stroke Maternal Grandmother Cancer Maternal Grandfather skin Hearing Loss Paternal Grandfather Cancer Paternal Grandfather skin Cancer Maternal Uncle liver Hypertension Sister PAST MEDICAL HISTORY Diagnosis Date Acute gastritis without mention of hemorrhage Allergic rhinitis Colon polyps 04/08/[address] [facility] [address] Monk Diaphragmatic hernia without mention of obstruction or gangrene HTN (hypertension) IBS (irritable bowel syndrome) Internal hemorrhoid Left bundle branch block Other anxiety states PMH - PAST MEDICAL HISTORY OF back discomfort and left knee PAST SURGICAL HISTORY Procedure Laterality Date DELIVERY+ CARE had two COLONOSCOPY FLX DX W/COLLJ SPEC WHEN PFRMD 09/25/14 Colonoscopy COLONOSCOPY FLX DX W/COLLJ SPEC WHEN PFRMD 04/08/2015 Colonoscopy (MAC) COLONOSCOPY FLX DX W/COLLJ SPEC WHEN PFRMD 08/01/2018 Colonoscopy ESOPHAGOGASTRODUODENOSCOPY TRANSORAL DIAGNOSTIC 12/14/05 EGD HYSTERECTOMY 10/2016 ovaries remain LIG/TRNSXJ FLP TUBE ABDL/VAG APPR UNI/BI Social History Tobacco Use Smoking status: Former Smokeless tobacco: Never Tobacco comments: Quit Vaping Use Vaping Use: Never used Substance Use Topics Alcohol use: Yes Alcohol/week: 5.0 standard drinks Types: 2 Glasses of Wine (5oz) per week Comment: One to Two Drinks per Week Drug use: No ACTIVE PROBLEM LIST Diaphragmatic Hernia Without Mention of Obstruction Or Gangrene Constitutional Obesity Chronic Anxiety Adenomatous Polyp of Transverse Colon Vitamin D Deficiency Chronic Insomnia Lbbb (Left Bundle Branch Block) Essential Hypertension History of Colonic Polyps Dilated Cardiomyopathy (Hcc) Mild Pulmonary Hypertension (Hcc) Current Outpatient Medications Medication Sig Dispense Refill losartan (COZAAR) 100 mg tablet Take 1 tablet by mouth once daily. 30 tablet 5 hydroCHLOROthiazide (HYDRODIURIL, ESIDRIX) 12.5 mg capsule Take 1 capsule by mouth once daily. 30 capsule 5 DAILY MULTI-VITAMINS/IRON TAB 0 Current Facility-Administered Medications Medication Dose Route Frequency Provider Last Rate Last Admin perflutren lipid microspheres 1.3 mL in NaCl (PF) 0.9% 10 mL injection (DEFINITY) INTRAVENOUS DIRECTED PRN Sasha Murrieta APRN.CNP sodium chloride 0.9 % (flush) 10 mL (BD POSIFLUSH) 10 mL INTRAVENOUS DIRECTED PRN Sasha Murrieta APRN.MEGAN HEPATITIS B(1 of 3 - 3-dose series) Never done BP CONTROLLED (<130/80) Never done DTAP,TDAP,TD(1 - Tdap) Never done SHINGRIX VACCINE(1 of 2) Never done DEPRESSION ASSESSMENT Never done COVID-19 VACCINE(4 - Booster for Moderna series) due on 04/14/2021 PAP TESTING due on 10/20/2021 HPV TESTING due on 10/20/2021 INFLUENZA(1) due on 10/28/2021 MAMMOGRAM due on 01/29/2022 EXAM: BP 148/82 Pulse 66 Resp 16 LMP 10/23/2016 (Exact Date) SpO2 98% Pleasant well appearing woman in no acute distress. Alert and oriented all spheres. Mildly anxious, affect congruent, normal cognition. Speech normal. No deficits to learning or comprehension. Skin warm, dry, pink to lips and nailbeds. Normal turgor. Respirations regular and unlabored. HEENT: NCAT. No scleral icterus or conjunctival injection. TM's clear. Nose and oropharynx free from injection or lesion. Oral membranes moist and pink. No cervical lymph nodes. Thyroid non-tender, no masses, or enlargement. Carotids pulses 2+/4+ without bruits. No JVD with HOB at 30 degrees. Chest is normal shape. Lungs are clear to all [place] with good air exchange through out. HRRR without murmur or gallop. No lifts, heaves, or rubs. Extrem: no clubbing or cyanosis. Edema: none. Extremities are warm and pink with prompt capillary refill. ASSESSMENT/PLAN: 1. Dilated cardiomyopathy (HCC) - ICD9: 425.4, ICD10: I42.0 (primary diagnosis) Stable without sx 2. Mild pulmonary hypertension (HCC) - ICD9: 416.8, ICD10: I27.20 Not identified on recent echo 3. LBBB (left bundle branch block) - ICD9: 426.3, ICD10: I44.7 4. Essential hypertension - ICD9: 401.9, ICD10: I10 - good control - Continue current medication(s) - Recommended regular aerobic exercise. - Recommend home blood pressure monitoring, to bring results in on next visit - Goal of BP <130/80 5. Bradycardia - ICD9: 427.89, ICD10: R00.1 Stable asymptomatic 6. Bilateral swelling of feet - ICD9: 729.81, ICD10: M79.89 Very mild, likely venous stasis. 7. Hyperlipidemia, mixed - ICD9: 272.2, ICD10: E78.2 - good control - Continue current medication. - Encouraged following a low fat, low cholesterol diet. 8. Chronic anxiety - ICD9: 300.00, ICD10: F41.9 Asking to restart antidepressant/ anxiety med and Trazedone for sleep. - DEPRESSION SCREENING/ASSESSMENT - DESVENLAFAXINE SUCCINATE ER 25 MG TABLET,EXTENDED RELEASE 24 HR - TRAZODONE 100 MG TABLET 9. Elevated blood sugar - ICD9: 790.29, ICD10: R73.9 Due for follow up 10. Vitamin D deficiency - ICD9: 268.9, ICD10: E55.9 Recommend supplement D3 2000u daily 11. Need for influenza vaccination - ICD9: V04.81, ICD10: Z23 - INFLUENZA VACCINE QUADRIVALENT 6 MO - 64 YRS IM Darius Maldonado PA-C Some of this note may have been copied and pasted for the purpose of history context and comparison. documented in this encounter [facility] 08-17-2021 Miscellaneous Notes The following approved medication requests have been transmitted electronically. Signed Prescriptions Disp Refills losartan (COZAAR) 100 mg tablet 30 tablet 5 Sig: Take 1 tablet by mouth once daily. hydroCHLOROthiazide (HYDRODIURIL, ESIDRIX) 12.5 mg capsule 30 capsule 5 Sig: Take 1 capsule by mouth once daily. Darius Maldonado PA-C documented in this encounter [facility] 08-13-2021 Instructions Sasha Murrieta APRN.MEGAN - 08/13/2021 2:07 PM EDT 1. Schedule echo. 2. Schedule with cardiology. 3. Check w/ [employer] customer service re: insurance coverage. Let me know if okay to pursue. 4. Continue to work on weight loss/exercise. 5. Take two of the losartan/hctz daily. 6. Recheck in a month. documented in this encounter [facility] 08-13-2021 Nurse Note Pt refused weight today. Kendall Hager LPN documented in this encounter [facility] 08-13-2021 History of Present illness Narrative This is a 56 year old female who presents today with: Patient presents with: Physical: MARISELA 01/02/19; bilateral lower leg edema/ hx of bakers cyst in R knee HISTORY OF PRESENT ILLNESS: Valentina Galvan is a 56 year old female. Patient presents with: Physical: MARISELA 01/02/19; bilateral lower leg edema/ hx of bakers cyst in R knee Pt presents today for follow-up. She has a couple of concerns Refers feet painful. Reports that her feet swell. Refers embarrassing. Has been going on for some time. She is aware that she has a arana's cyst on the right. Unsure if the foot pain is coming from the swelling or if the pain and the swelling are different. Apple watch noted a low heart rate. Refers that it has occurred twice in the last three months. Heartrate below 50. Hx of LBBB. Hx of dilated cardiomyopathy. Last echo 2016. + swelling. No palpitations. Sometimes AVALOS (climbing stairs) REVIEW OF SYSTEMS GENERAL: No weight loss, malaise or fevers/chills HEENT: Negative for frequent or significant headaches, No changes in hearing or vision. NECK: Negative for lumps, goiter, pain and significant neck swelling RESPIRATORY: Negative for cough, hemoptysis, wheezing, dyspnea or shortness of breath CARDIOVASCULAR: Negative for chest pain, leg swelling, orthopnea, or palpitations GI: No nausea, vomiting, or diarrhea/constipation. No hematochezia/melena. No heartburn or reflux symptoms. : No history of dysuria, frequency or incontinence. Refers that she urinates a lot. MUSCULOSKELETAL: Negative for joint pain or swelling. SKIN: Negative for lesions, rash, and itching ENDOCRINE: Negative for cold or heat intolerance, polyuria, polydipsia and goiter NEURO: No history of headaches, syncope, paralysis, seizures or tremors PAST MEDICAL HISTORY: PAST MEDICAL HISTORY Diagnosis Date Acute gastritis without mention of hemorrhage Allergic rhinitis Colon polyps 04/08/[address] [facility] [address] Monk Diaphragmatic hernia without mention of obstruction or gangrene HTN (hypertension) IBS (irritable bowel syndrome) Internal hemorrhoid Left bundle branch block Other anxiety states PMH - PAST MEDICAL HISTORY OF back discomfort and left knee PAST SURGICAL HISTORY Procedure Laterality Date DELIVERY+ CARE had two COLONOSCOPY FLX DX W/COLLJ SPEC WHEN PFRMD 09/25/14 Colonoscopy COLONOSCOPY FLX DX W/COLLJ SPEC WHEN PFRMD 04/08/2015 Colonoscopy (MAC) COLONOSCOPY FLX DX W/COLLJ SPEC WHEN PFRMD 08/01/2018 Colonoscopy ESOPHAGOGASTRODUODENOSCOPY TRANSORAL DIAGNOSTIC 12/14/05 EGD HYSTERECTOMY 10/2016 ovaries remain LIG/TRNSXJ FLP TUBE ABDL/VAG APPR UNI/BI ALLERGIES Lisinopril and Seasonal Allergies MEDICATIONS Current Outpatient Medications Medication Sig losartan-hydroCHLOROthiazide (HYZAAR) 50-12.5 mg per tablet Take 1 tablet by mouth once daily. losartan (COZAAR) 50 mg tablet Take 1 tablet by mouth once daily. In addition to losartan/ HCTZ 50/12.5mg start losartan 50mg daily. DAILY MULTI-VITAMINS/IRON TAB No current facility-administered medications for this visit. FAMILY HISTORY Problem Relation Age of Onset Hypertension Mother Hyperlipidemia Mother Psychiatry Mother depression Alzheimer's Disease Mother Hypertension Father Cancer Father COLON/skin Colon Cancer Father Stroke Maternal Grandmother Cancer Maternal Grandfather skin Hearing Loss Paternal Grandfather Cancer Paternal Grandfather skin Cancer Maternal Uncle liver Hypertension Sister Social History Tobacco Use Smoking status: Former Smoker Smokeless tobacco: Never Used Tobacco comment: Quit Vaping Use Vaping Use: Never used Substance Use Topics Alcohol use: Yes Alcohol/week: 5.0 standard drinks Types: 2 Glasses of Wine (5oz) per week Comment: One to Two Drinks per Week Drug use: No EXAM: BP 158/96 Pulse (!) 58 Resp 18 Ht 160 cm (5' 2.99 ) LMP 10/23/2016 (Exact Date) SpO2 96% BMI 35.79 kg/m PHYSICAL EXAM: General Appearance: Well appearing, alert, in no acute distress, well-hydrated, well nourished.. Skin: Skin color, texture, turgor normal, no suspicious rashes or lesions. Head: Normocephalic, no masses, lesions, tenderness or abnormalities. Eyes: Anicteric sclera. Pupils are equally round and reactive to light. Extraocular movements are intact. . Neck: Supple, no adenopathy; thyroid symmetric, normal size, no bruits. Lungs: Lungs clear to auscultation. No wheezing, rhonchi, rales.. Heart: RRR without murmur, gallop, or rubs. No ectopy. Abdomen: Abdomen soft, non-tender. Bowel sounds normal. No masses, organomegaly. Extremities: No deformities, edema, skin discoloration, clubbing or cyanosis. Good capillary refill. . Neurologic: Gait normal. ASSESSMENT/PLAN: 1. Essential hypertension - ICD9: 401.9, ICD10: I10 (primary diagnosis) - suboptimal control Currently taking losartan 100mg and hydrochlorothiazide 12.5 mg. Will go ahead and increase to 100/25. Recheck in 1 month. - ECHO - PERFLUTREN LIPID MICROSPHERES 1.1 MG/ML INJECTION IN NS 10 ML - SODIUM CHLORIDE 0.9 % (FLUSH) INJECTION SYRINGE - CONSULT TO CARDIOLOGY - LOSARTAN 50 MG-HYDROCHLOROTHIAZIDE 12.5 MG TABLET 2. Dilated cardiomyopathy (HCC) - ICD9: 425.4, ICD10: I42.0 Get echo. Get established w/ cardiology. - ECG COMPLETE - ECHO - PERFLUTREN LIPID MICROSPHERES 1.1 MG/ML INJECTION IN NS 10 ML - SODIUM CHLORIDE 0.9 % (FLUSH) INJECTION SYRINGE - CONSULT TO CARDIOLOGY 3. Mild pulmonary hypertension (HCC) - ICD9: 416.8, ICD10: I27.20 As above. - ECHO - PERFLUTREN LIPID MICROSPHERES 1.1 MG/ML INJECTION IN NS 10 ML - SODIUM CHLORIDE 0.9 % (FLUSH) INJECTION SYRINGE - CONSULT TO CARDIOLOGY 4. LBBB (left bundle branch block) - ICD9: 426.3, ICD10: I44.7 As above. - ECHO - PERFLUTREN LIPID MICROSPHERES 1.1 MG/ML INJECTION IN NS 10 ML - SODIUM CHLORIDE 0.9 % (FLUSH) INJECTION SYRINGE - CONSULT TO CARDIOLOGY 5. Bilateral swelling of feet - ICD9: 729.81, ICD10: M79.89 Will go ahead and increase losartan/HCTZ. Limit sodium/processed foods. - LOSARTAN 50 MG-HYDROCHLOROTHIAZIDE 12.5 MG TABLET 6. Bradycardia - ICD9: 427.89, ICD10: R00.1 Get echo. Check insurance coverage for [employer] event monitor. Discussed treatment plan and patient voices understanding. Patient's questions answered appropriately. Medications and potential side effects were discussed and patient voices understanding. Return to the office as scheduled or as needed for worsening/no improvement. Sasha Murrieta APRN.MEGAN documented in this encounter [facility] 08-09-2021 Miscellaneous Notes See [employer]) message. Cristian Maldonado PA-C Valentina calls in concerned about her BUN being 27 again this check. She states for past year or more have been taking 2 aleve in am. She has not for past few days and will completely stop now . Believes this may be why its so high. documented in this encounter [facility] 08-06-2021 Miscellaneous Notes Patient has been identified by name and date of : Yes Patient phones for refill(s): Pending Prescriptions Disp Refills LOSARTAN 50 MG-HYDROCHLOROTHIAZIDE 12.5 MG TABLET 30 tablet 0 Sig: Take 1 tablet by mouth once daily. ALEXANDER: No LOSARTAN 50 MG TABLET 30 tablet 0 Sig: Take 1 tablet by mouth once daily. In addition to losartan/ HCTZ 50/12.5mg start losartan 50mg daily. ALEXANDER: No Date of last office visit in primary care: 12/06/2019 Patient is scheduled for appointment on 08/13 but will be out of medication before then. Last 2 Encounter Wt Readings: Date: Wt: 06/25/2021 0 kg () 01/02/2019 0 kg () Previous labs/tests for medication: Not applicable Please advise. Thank you. Oksana Falcon LPN documented in this encounter [facility] 07-29-2021 Miscellaneous Notes Notified of result via [employer] Dayo Maldonado PA-C Pt called in and had to change appointment from 08/02/21 to 08/13/21. She reports that some of her labs are going to before she can come in and get them done and was asking if the provider could go in and extend the expiration date on them. Please call and let Pt know. documented in this encounter [facility] 06-25-2021 History of Present illness Narrative Subjective HPI Nontoxic-appearing female presents urgent care chief complaint abnormal heart rate. Duration of symptoms today. Associated symptoms abnormal heart rate. Patient states she felt a strange sensation in her chest and when she has looked at her apple watch reported abnormal/slow heart rate. Patient states history of bundle branch block. Patient states feeling well currently. States she was slightly anxious and was having anxiety about this . Presents today for evaluation. Denies any chest pain shortness of breath pleuritic pain hemoptysis or dizziness. States feeling well now. Past medical history prescription medication use allergies reviewed. .Patient presents with: Follow Up: Pt reported apple watch showing decreased heart rate, (LT) arm tingling, denied pain, numbness PAST MEDICAL HISTORY Diagnosis Date Acute gastritis without mention of hemorrhage Allergic rhinitis Colon polyps 04/08/[address] [facility] [address] Monk Diaphragmatic hernia without mention of obstruction or gangrene HTN (hypertension) IBS (irritable bowel syndrome) Internal hemorrhoid Left bundle branch block Other anxiety states PMH - PAST MEDICAL HISTORY OF back discomfort and left knee PAST SURGICAL HISTORY Procedure Laterality Date DELIVERY+ CARE had two COLONOSCOPY FLX DX W/COLLJ SPEC WHEN PFRMD 09/25/14 Colonoscopy COLONOSCOPY FLX DX W/COLLJ SPEC WHEN PFRMD 04/08/2015 Colonoscopy (MAC) COLONOSCOPY FLX DX W/COLLJ SPEC WHEN PFRMD 08/01/2018 Colonoscopy ESOPHAGOGASTRODUODENOSCOPY TRANSORAL DIAGNOSTIC 12/14/05 EGD HYSTERECTOMY 10/2016 ovaries remain LIG/TRNSXJ FLP TUBE ABDL/VAG APPR UNI/BI ALLERGIES Lisinopril and Seasonal Allergies MEDICATIONS losartan-hydroCHLOROthiazide (HYZAAR) 50-12.5 mg per tablet Take 1 tablet by mouth once daily. losartan (COZAAR) 50 mg tablet Take 1 tablet by mouth once daily. In addition to losartan/ HCTZ 50/12.5mg start losartan 50mg daily. DAILY MULTI-VITAMINS/IRON TAB FAMILY HISTORY Problem Relation Age of Onset Hypertension Mother Hyperlipidemia Mother Psychiatry Mother depression Alzheimer's Disease Mother Hypertension Father Cancer Father COLON/skin Colon Cancer Father Stroke Maternal Grandmother Cancer Maternal Grandfather skin Hearing Loss Paternal Grandfather Cancer Paternal Grandfather skin Cancer Maternal Uncle liver Hypertension Sister Social History Tobacco Use Smoking status: Former Smoker Smokeless tobacco: Never Used Tobacco comment: Quit Vaping Use Vaping Use: Never used Substance Use Topics Alcohol use: Yes Alcohol/week: 5.0 standard drinks Types: 2 Glasses of Wine (5oz) per week Comment: One to Two Drinks per Week Drug use: No BP 144/82 Pulse 63 Temp 36.9 C (98.4 F) Resp 20 LMP 10/23/2016 (Exact Date) SpO2 98% Review of Systems Constitutional: Negative for chills, fever and malaise/fatigue. HENT: Negative for congestion, ear discharge, ear pain, sinus pain and sore throat. Eyes: Negative for blurred vision, pain, discharge and redness. Respiratory: Negative for cough, hemoptysis, sputum production, shortness of breath, wheezing and stridor. Cardiovascular: Negative for chest pain. Gastrointestinal: Negative for abdominal pain, diarrhea, nausea and vomiting. Musculoskeletal: Negative for myalgias. Skin: Negative for itching and rash. Neurological: Negative for dizziness and headaches. Objective Physical Exam Constitutional: General: She is not in acute distress. Appearance: She is not diaphoretic. HENT: Head: Normocephalic. Mouth/Throat: Mouth: Mucous membranes are moist. Pharynx: Oropharynx is clear. No oropharyngeal exudate or posterior oropharyngeal erythema. Eyes: Conjunctiva/sclera: Conjunctivae normal. Pupils: Pupils are equal, round, and reactive to light. Cardiovascular: Rate and Rhythm: Normal rate and regular rhythm. Heart sounds: Normal heart sounds. Pulmonary: Effort: Pulmonary effort is normal. No tachypnea, accessory muscle usage or respiratory distress. Breath sounds: Normal breath sounds. No stridor. Abdominal: Palpations: Abdomen is soft. Tenderness: There is no abdominal tenderness. Musculoskeletal: Cervical back: Normal range of motion and neck supple. No rigidity or tenderness. Lymphadenopathy: Cervical: No cervical adenopathy. Skin: General: Skin is warm and dry. Neurological: Mental Status: She is alert and oriented to person, place, and time. ASSESSMENT/PLAN: 1. BP check - ICD9: V81.1, ICD10: Z01.30 Vital signs within normal limits. Heart rate's appear to be normal. I explained with patient presenting unable to perform EKG or lab work. With patient's symptoms I recommend patient be seen in ED for further evaluation care. Patient verbalized understanding agrees with plan of care. Will be seen at [facility] for further evaluation Tee Pool APRN.MEGAN documented in this encounter [facility] 06-08-2021 Miscellaneous Notes Pt is going to [employer] under workers comp to get labs drawn. Left message for pt to reach to her human resources department to find out what she should do, since this is considered worker's comp. Yes, I can. We don't usually do it but can look up current requirements if needed. Pt called in and states she does not know if their company has a occ med company. Gave her [employer] number to call and see. If [employer] will not see her would provider be willing to place labs for Pt. Pt wanted to know if there is a timeframe on when she needs to get her blood drawn. She was stuck yesterday and she is working now. Do they utilize an occ med provider. Usually that is a comp type issue and one of the occupational med places handle it. 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 The needlestick occurred on her left hand palm side between index finger and middle finger and it did draw blood. She reports there is a small bruise there today. The patient she was working with has no medical history other than an allergy to PCN. She is asking if provider could instruct her if she needs to get labs drawn today, needs prophylactic treatment, or other? Please call [phone] leave detailed message of no answer. Thank you. documented in this encounter [facility] 06-04-2021 Miscellaneous Notes Patient called to check on status of refill. Informed as below. Patient is scheduled for a physical 08-02 with Sasha and will have lab work drawn the Monday am before. No appt with me since 12/06/2019 needs in office appointment: please schedule as physical. Please complete fasting lab prior. Refill on 06/03/21 CBC COMP METABOLIC PANEL LIPID PANEL BASIC HGB A1C VITAMIN D 25 HYDROXY The following approved medication requests have been transmitted electronically. Signed Prescriptions Disp Refills losartan-hydroCHLOROthiazide (HYZAAR) 50-12.5 mg per tablet 30 tablet 1 Sig: Take 1 tablet by mouth once daily. ALEXANDER: No Authorizing Provider: Darius MALDONADO PA-C Last visit was [facility] on 12/06/19 MARISELA 01/02/2019 Had nurse visit 06/24/20 Patient does not have a future visit scheduled. Patient took her last pill this morning and needs this as soon as possible. Coty Coleman Pss documented in this encounter [facility] documented as of this encounter (statuses as of 06/04/2021) [facility] History of Past illness Narrative* Problem Noted Date Resolved Date Pelvic mass 11/01/2016 11/17/2016 Overview: Added automatically from request for surgery [id number] Special screening for malignant neoplasms, colon 09/25/2014 09/25/2014 documented as of this encounter (statuses as of 06/08/2021) [facility] History of Past illness Narrative* Problem Noted Date Resolved Date Pelvic mass 11/01/2016 11/17/2016 Overview: Added automatically from request for surgery [id number] Special screening for malignant neoplasms, colon 09/25/2014 09/25/2014 documented as of this encounter (statuses as of 06/25/2021) [facility] History of Past illness Narrative* Problem Noted Date Resolved Date Pelvic mass 11/01/2016 11/17/2016 Overview: Added automatically from request for surgery [id number] Special screening for malignant neoplasms, colon 09/25/2014 09/25/2014 documented as of this encounter (statuses as of 07/29/2021) [facility] History of Past illness Narrative* Problem Noted Date Resolved Date Pelvic mass 11/01/2016 11/17/2016 Overview: Added automatically from request for surgery [id number] Special screening for malignant neoplasms, colon 09/25/2014 09/25/2014 documented as of this encounter (statuses as of 08/06/2021) [facility] History of Past illness Narrative* Problem Noted Date Resolved Date Pelvic mass 11/01/2016 11/17/2016 Overview: Added automatically from request for surgery [id number] Special screening for malignant neoplasms, colon 09/25/2014 09/25/2014 documented as of this encounter (statuses as of 08/09/2021) [address]05-2017 History of Past illness Narrative* Problem Noted Date Resolved Date Pelvic mass 11/01/2016 11/17/2016 Overview: Added automatically from request for surgery [id number] Special screening for malignant neoplasms, colon 09/25/2014 09/25/2014 documented as of this encounter (statuses as of 08/13/2021) [facility] History of Past illness Narrative* Problem Noted Date Resolved Date Pelvic mass 11/01/2016 11/17/2016 Overview: Added automatically from request for surgery [id number] Special screening for malignant neoplasms, colon 09/25/2014 09/25/2014 documented as of this encounter (statuses as of 08/17/2021) [facility] History of Past illness Narrative* Problem Noted Date Resolved Date Pelvic mass 11/01/2016 11/17/2016 Overview: Added automatically from request for surgery [id number] Special screening for malignant neoplasms, colon 09/25/2014 09/25/2014 documented as of this encounter (statuses as of 12/10/2021) [facility] History of Past illness Narrative* Problem Noted Date Resolved Date Pelvic mass 11/01/2016 11/17/2016 Overview: Added automatically from request for surgery [id number] Special screening for malignant neoplasms, colon 09/25/2014 09/25/2014 documented as of this encounter (statuses as of 12/13/2021) [facility] History of Past illness Narrative* Problem Noted Date Resolved Date Pelvic mass 11/01/2016 11/17/2016 Overview: Added automatically from request for surgery [id number] Special screening for malignant neoplasms, colon 09/25/2014 09/25/2014 documented as of this encounter (statuses as of 12/18/2021) [facility] History of Past illness Narrative* Problem Noted Date Resolved Date Pelvic mass 11/01/2016 11/17/2016 Overview: Added automatically from request for surgery [id number] Special screening for malignant neoplasms, colon 09/25/2014 09/25/2014 documented as of this encounter (statuses as of 12/24/2021) [facility] History of Past illness Narrative* Problem Noted Date Diagnosed Date Resolved Date Pelvic mass 11/01/2016 11/17/2016 Overview: Added automatically from request for surgery [id number] Special screening for malign ant neoplasms, colon 09/25/2014 09/25/2014 documented as of this encounter (statuses as of 01/01/2023) [facility] History of Past illness Narrative* Problem Noted Date Diagnosed Date Resolved Date Pelvic mass 11/01/2016 11/17/2016 Overview: Added automatically from request for surgery [id number] Special screening for malign ant neoplasms, colon 09/25/2014 09/25/2014 documented as of this encounter (statuses as of 02/06/2023) [facility] Diagnosis Chronic anxiety- Primary Anxiety state, unspecified Dilated cardiomyopathy (HCC) Other primary cardiomyopathies Essential hypertension Unspecified essential hypertension Mild pulmonary hypertension (HCC) Other chronic pulmonary heart diseases Vitamin D deficiency Unspecified vitamin D deficiency Elevated blood sugar Other abnormal glucose Hyperlipidemia, mixed Mixed hyperlipidemia [facility] Diagnosis BP check- Primary Screening for hypertension [facility] Diagnosis Essential hypertension Unspecified essential hypertension documented in this encounter [facility] note* Diagnosis Essential hypertension- Primary Unspecified essential hypertension Dilated cardiomyopathy (HCC) Other primary cardiomyopathies Mild pulmonary hypertension (HCC) Other chronic pulmonary heart diseases LBBB (left bundle branch block) Other left bundle branch block Bilateral swelling of feet Swelling of limb Bradycardia Other specified cardiac dysrhythmias documented in this encounter [facility] note* Diagnosis Dilated cardiomyopathy (HCC)- Primary Other primary cardiomyopathies Mild pulmonary hypertension (HCC) Other chronic pulmonary heart diseases LBBB (left bundle branch block) Other left bundle branch block Essential hypertension Unspecified essential hypertension Bradycardia Other specified cardiac dysrhythmias Bilateral swelling of feet Swelling of limb Hyperlipidemia, mixed Mixed hyperlipidemia Chronic anxiety Anxiety state, unspecified Elevated blood sugar Other abnormal glucose Vitamin D deficiency Unspecified vitamin D deficiency Need for influenza vaccination Need for prophylactic vaccination and inoculation against influenza documented in this encounter [facility] note* Diagnosis RUQ pain- Primary Abdominal pain, right upper quadrant Globus pharyngeus Gastrointestinal malfunction arising from mental factors Chronic anxiety Anxiety state, unspecified documented in this encounter [facility] note* Diagnosis RUQ pain- Primary Abdominal pain, right upper quadrant documented in this encounter [facility] note* Diagnosis RUQ pain Abdominal pain, right upper quadrant documented in this encounter [facility] note* Diagnosis Encounter for screening mammogram for breast cancer documented in this encounter [facility] for referral (narrative)* Diagnostic Procedure Only (Routine) - Authorized Specialty Diagnoses / Procedures Referred By Contac t Referred To Contact US IMAGING Diagnoses RUQ pain Procedures US ABD RT UPPER QUADRANT US ABDOMINAL REAL TIME W/IMAGE LIMITED Darius Maldonado PA-C [address] [place] [address] [facility] Imaging Referral ID Status Reason Start Date Expiration Date Visits Requested Visits Authorized [id number] Authorized Auto-Generat ed Referral 2 01/23/2023 1 1 [facility] for referral (narrative)* Diagnostic Procedure Only (Routine) - Closed Specialty Diagnoses / Procedures Referred By Contac t Referred To Contact US IMAGING Diagnoses RUQ pain Procedures US ABD RT UPPER QUADRANT US ABDOMINAL REAL TIME W/IMAGE LIMITED Darius Maldonado PA-C [address] [place] [address] [place] [address] Referral ID Status Reason Start Date Expiration Date V isits Requested Visits Authorized [id number] Closed Auto-Generate d Referral 12/24/2021 01/23/2023 1 1 [facility] Diagnostic Procedure Only (Routine) - Pending Review Specialty Diagnoses / Procedures Referred By Contac t Referred To Contact [facility] Diagnoses Encounter for screening mammogram for breast cancer Procedures DAMIEN SCREENING SCREENING MAMMOGRAPHY BI 2-VIEW BREAST INC CAD Darius Maldonado PA-C [address] [place] [address] [facility] [address] [place] [address] Referral ID Status Reason Start Date Expiration Date Visits Requested Visits Authorized [id number] Pending Review Auto-Generat ed Referral 02/01/2023 03/02/2024 1 1 [facility] Summary Purpose Family History No Family History Records FoundNo Family History Records FoundNo Family History Records Found Advance Directives No Advanced Directives Records FoundDocuments on File Type Date Recorded 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 Expl anation Advance Directive(s) 08/01/2018 8:43 AM Documents on File Type Date Recorded 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 Expl anation Advance Directive(s) 08/01/2018 8:43 AM Reason for Referral Specialty Diagnoses / Procedures Referred By Contac t Referred To Contact Cardiology Diagnoses Dilated cardiomyopathy (HCC) Mild pulmonary hypertension (HCC) LBBB (left bundle branch block) Essential hypertension Procedures CONSULT TO CARDIOLOGY OFFICE/OUTPATIENT [facility] MDM 60-74 MINUTES Sasha Murrieta, FRACISCO.[employer]TER [employer]ACON [address] [place] [address] Referral ID Status Reason Start Date Expiration Date Visits Requested Visits Authorized [id number] Authorized PCP Requested Referral 08/13/2021 08/13/2022 1 1 Specialty Diagnoses / Procedures Referred By Contac t Referred [facility] Diagnoses Dilated cardiomyopathy (HCC) Mild pulmonary hypertension (HCC) LBBB (left bundle branch block) Essential hypertension Procedures ECHO ECHO TTHRC R-T 2D W/WOM-MODE COMPL SPEC&COLR D Sasha Murrieta APRN.SKIN LIFTER BACON [address] [place] [address] [facility] [address] [place] [id number] Referral ID Status Reason Start Date Expiration Date Visits Requested Visits Authorized [id number] Authorized Auto-Generat ed Referral 08/13/2021 08/13/2022 1 1 Specialty Diagnoses / Procedures Referred By Contac t Referred To Contact [facility] Diagnoses Dilated cardiomyopathy (HCC) Procedures ECG COMPLETE ECG ROUTINE ECG W/LEAST 12 LDS W/I&R Sasha Murrieta, MOLECULAR BIOLOGY SCIENTIST.SKIN LIFTER BACON [address] [place] [address] [address] Referral ID Status Reason Start Date Expiration Date V isits Requested Visits Authorized [id number] Closed Auto-Generate d Referral 08/13/2021 08/13/2022 1 1 Additional Source Comments INFORMATION SOURCE (unrecogn ized section and content) DATE CREATED AUTHOR AUTHOR'S ORGANIZ ATION 08/01/2018 [facility] DATE CREATED AUTHOR AUTHOR'S ORGANIZ ATION 02/07/2023 [facility] Source Comments (unrecognize d section and content) In the event this informatio n is protected by the Federal Confidentiality of Alcohol and Drug Abuse Patient Records regulations: The Federal rules restrict any use of the information to criminally investigate or prosecute any alcohol or drug abuse patient.[facility] the event this information is protected by the Federal Confidentiality of Alcohol and Drug Abuse Patient Records regulations: The Federal rules restrict any use of the information to criminally investigate or prosecute any alcohol or drug abuse patient.[facility] the event this information is protected by the Federal Confidentiality of Alcohol and Drug Abuse Patient Records regulations: The Federal rules restrict any use of the information to criminally investigate or prosecute any alcohol or drug abuse patient.[facility] the event this information is protected by the Federal Confidentiality of Alcohol and Drug Abuse Patient Records regulations: The Federal rules restrict any use of the information to criminally investigate or prosecute any alcohol or drug abuse patient.[facility] the event this information is protected by the Federal Confidentiality of Alcohol and Drug Abuse Patient Records regulations: The Federal rules restrict any use of the information to criminally investigate or prosecute any alcohol or drug abuse patient.[facility] the event this information is protected by the Federal Confidentiality of Alcohol and Drug Abuse Patient Records regulations: The Federal rules restrict any use of the information to criminally investigate or prosecute any alcohol or drug abuse patient.[facility] the event this information is protected by the Federal Confidentiality of Alcohol and Drug Abuse Patient Records regulations: The Federal rules restrict any use of the information to criminally investigate or prosecute any alcohol or drug abuse patient.[facility] the event this information is protected by the Federal Confidentiality of Alcohol and Drug Abuse Patient Records regulations: The Federal rules restrict any use of the information to criminally investigate or prosecute any alcohol or drug abuse patient.[facility] the event this information is protected by the Federal Confidentiality of Alcohol and Drug Abuse Patient Records regulations: The Federal rules restrict any use of the information to criminally investigate or prosecute any alcohol or drug abuse patient.[facility] the event this information is protected by the Federal Confidentiality of Alcohol and Drug Abuse Patient Records regulations: The Federal rules restrict any use of the information to criminally investigate or prosecute any alcohol or drug abuse patient.[facility] the event this information is protected by the Federal Confidentiality of Alcohol and Drug Abuse Patient Records regulations: The Federal rules restrict any use of the information to criminally investigate or prosecute any alcohol or drug abuse patient.[facility] the event this information is protected by the Federal Confidentiality of Alcohol and Drug Abuse Patient Records regulations: The Federal rules restrict any use of the information to criminally investigate or prosecute any alcohol or drug abuse patient.[facility] the event this information is protected by the Federal Confidentiality of Alcohol and Drug Abuse Patient Records regulations: The Federal rules restrict any use of the information to criminally investigate or prosecute any alcohol or drug abuse patient.[facility] the event this information is protected by the Federal Confidentiality of Alcohol and Drug Abuse Patient Records regulations: The Federal rules restrict any use of the information to criminally investigate or prosecute any alcohol or drug abuse patient.[facility] Reason for Visit (unrecogniz ed section and content) Reason Comments : Regarding Needlestick Reason Comments Follow Up Pt reported apple wa tch showing decreased heart rate, (LT) arm tingling, denied pain, numbness Reason Comments Appointment Lab Orders Reason Onset Date Comments Refill Request 08/06/2021 Reason Comments FYI-No Action Needed Reason Comments Physical MARISELA 01/02/19; bilater al lower leg edema/ hx of bakers cyst in R knee Reason Onset Date Comments Stress Anxiety Immunizations 12/10/2021 Flu vaccination Reason Comments Abdominal Pain Anxiety Reason Comments Patient Question Reason Comments Radiology US Specialty Diagnoses / Procedures Referred By Agatha mullins Referred To Contact US IMAGING Diagnoses RUQ pain Procedures US ABD RT UPPER QUADRANT US ABDOMINAL REAL TIME W/IMAGE LIMITED Darius Maldonado PA-C [address] [place] [address] Us Imaging [id number] Referral ID Status Reason Start Date Expiration Date V isits Requested Visits Authorized [id number] Closed Auto-Generate d Referral 12/24/2021 01/23/2023 1 1 Care Teams (unrecognized sec tion and content) Motivational Speaker Relationship Specialty Start Date End Date Darius Maldonado PA-C [address] [place], [place] [id number] PCP - General Family Practice 09/19/16 Motivational Speaker Relationship Specialty Start Date End Date Darius Maldonado PA-C [address] [place] [address] PCP - General Family Practice 09/19/16 Motivational Speaker Relationship Specialty Start Date End Date Darius Maldonado PA-C [address] [facility] [address] PCP - General Family Practice 09/19/16 Motivational Speaker Relationship Specialty Start Date End Date Darius Maldonado PA-C [address] [facility] [address] PCP - General Family Practice 09/19/16 Motivational Speaker Relationship Specialty Start Date End Date Darius Maldonado PA-C [address] [facility] [address] PCP - General Family Practice 09/19/16 Motivational Speaker Relationship Specialty Start Date End Date Darius Maldonado PA-C [address] [facility] [address] PCP - General Family Practice 09/19/16 Motivational Speaker Relationship Specialty Start Date End Date Darius Maldonado PA-C [address] [facility] [address] PCP - General Family Practice 09/19/16 Motivational Speaker Relationship Specialty Start Date End Date Darius Maldonado PA-C [address] [facility] [address] PCP - General Family Medicine 09/19/16 Motivational Speaker Relationship Specialty Start Date End Date Darius Maldonado PA-C [address] [facility] [address] PCP - General Family Medicine 09/19/16 Motivational Speaker Relationship Specialty Start Date End Date Darius Maldonado PA-C [id number] [facility] [place] [address] PCP - General Family Medicine 09/19/16 Motivational Speaker Relationship Specialty Start Date End Date Darius Maldonado PA-C [address] [place], [place] [address] PCP - [facility] 09/19/16 Motivational Speaker Relationship Specialty Start Date End Date Darius Maldonado PA-C [address] [place], [place] [address] PCP - [facility] 09/19/16 Motivational Speaker Relationship Specialty Start Date End Date Darius Maldonado PA-C [address] [place], [place] [id number] PCP - [facility] 09/19/16 FOR RECORDS PERTAINING TO PATIENTS WHO ARE OR HAVE BEEN ENROLLED IN A CHEMICAL DEPENDENCY/SUBSTANCEABUSE PROGRAM, SOME INFORMATION MAY BE OMITTED. This clinical summary was aggregated from multiple sources. Caution should be exercised in using it in the provision of clinical care. This summary normalizes information from multiple sources, and as a consequence, information in this document may materially change the coding, format and clinical context of patient data. In addition, data may be omitted in some cases. CLINICAL DECISIONS SHOULD BE BASED ON THE PRIMARY CLINICAL RECORDS. [facility] [employer] [facility]. provides no warranty or guarantee of the accuracy or completeness of information in this document.
== END | disposition home or self-care (01) ==
LOC: OPBI 10:19
PROVIDERS: PCP Internal Medicine; Referring Provider Registered Nurse; Visit Provider Registered Nurse
DX: Z12.31 Encounter for screening mammogram for malignant neoplasm of breast (principal)
CPT/HCPCS: 77063; 77067

== ENCOUNTER → 2023-06-12 | Outpatient (CLI) | payer BC, SELFPAY ==
[2023-06-12 16:07] LABS: Thyroid Stim Hormone (TSH) 2.44 uIU/mL (0.358-3.74)
== END | disposition home or self-care (01) ==
LOC: BIMLAB 13:49
PROVIDERS: PCP Internal Medicine; Referring Provider Internal Medicine; Visit Provider Internal Medicine
DX: I49.1 Atrial premature depolarization (principal)
CPT/HCPCS: 36415; 84439; 84443

== ENCOUNTER 2023-10-05 12:30 | Outpatient (RCR) | payer BC, SELFPAY ==
--- NOTE | 2023-06-26 08:38 | HP.PTEVAL_ITS ---
Patient's Visit Information Visit Information Visit Information: CARA GALVAN is a 58 year old F referred to Physical Therapy by Dr. Hector Haynes MD with a diagnosis of R ANN DOS: 06/20/23. Date of Evaluation: 06/22/23 Physical Therapist: Hu Cadet DPT Visit Plan Frequency: 3x /Week Duration: 6 Weeks Plan: 1)Start with ROM of R knee, work on progressing end range extension and flexion to 120deg. 2) Vaso and ice for edema control. 3) add in quad and hip muscle activation progressing to functional strengthening. 4) gait progression away from AD, stair negotiation. Subjective Subjective: Pt. is here today for her initial evaluation with diagnosis of R TKA. DOS: 06/20/23. Pt. arrives with use of FWW. Pt. reports overall doing well. Still a bit sore, as expected. She denies N/T, no calf pain, no chills or fever. Pt. was been trying to move her knee and walking, along with icing alot. Pt. is wearing TEDs as prescribed and taking pain medication as prescribed. Her sister is available to help with driving and other activities. Pt. is hopeful to get back to all recreational walking and daily activities without increase limita tions. Pain R knee: Pain Intensity (Out of 10): 4 Pain Intensity Range: 3 and 8 Objective Objective: POSTURE: Good posture in stance. Good Wbing on RLE, able to stand without AD. Lack TKE on R LE. PALPATION: Negative homans signs. No signs of infection. Bandage still in place, pt. to remove in a few days. NEURO: Normal sensation and normal achilles DTR bilaterally. Pt. is able rise on heels and toes without issues. ROM: R knee: 0-6-79deg. Pt. reports pain and tightness at both end ranges. Worse with flexion. Tight HS noted as well. MMT: RLE: ankle 12#DF, PF 28#; knee: ext 3#, flexion 8#; hip: flexion 0#, abd 5#. GAIT: Pt. ambulates well, but lacks TKE during R stance phase. Good tolerance. Decreased knee flexion during swing. STAIRS: step to pattern noted with use of BHR, loading LLE only. Balance/Special Test Scores TUG Test Time Seconds: 34 30 Second Chair Rise Test Seconds: 5 WOMAC Total Score: 50 WOMAC Percentatge: 47.9200 Goals Goal 1:: LTG: Pt. to be I with HEP for ROM and strengthening of BLEs. Goal Time Frame: 4-6 Weeks Goal 2:: STG: Pt. to have increased R knee ROM to 0-0-110deg. Goal Time Frame: 2 Weeks Goal 3:: LTG: Pt. to have increased R knee ROM to 0-0-120deg allowing for good tolerance to all functional mobility. Goal Time Frame: 4-6 Weeks Goal 4:: LTG: Pt. to ambulate with normal gait pattern without increased in R knee pain. Goal Time Frame: 4-6 Weeks Goal 5:: LTG: Pt. to negotiate steps with 1 HR with reciprocal pattern. Goal Time Frame: 4-6 Weeks Rehabilitation Potential Physical Therapy Diagnosis: Pt. has signs and symptoms consistent with R ANN, DOS: 06/20/23. Pt. is overall doing well, but does have marked hypomobilty, increased pain, weakness and difficulty with walking. She would benefit from PT to address the above limitations progressing back to recreational activities without limitations. Rehabilitation Potential: Excellent Anticipated Interventions Patient/Client Instruction: Educate patient on: Condition, Plan of Care, Risk Factors and Benefits of Fitness Program For the Purpose of:: To improve health and function, To foster healthy habits, To improve decision making, To facilitate caregiver knowledge, To improve self management, To prevent re-injury, To improve ability to perform tasks related to life management and To improve tolerance to ADL's Therapeutic Exercise to Include: Strength training, Power training, Endurance training, Balance training, Flexibilty training, Gait and locomotor training, Passive ROM and Active ROM For the Purpose of:: To decrease pain, To increase ROM, To improve nutrient delivery to tissue, To increase oxygenation perfusion, To improve muscle perform ance and motor function, To improve ability to perform ADL's, To increase tolerance to activity/condition/position, To decrease soft tissue restriction and To increase flexibility/ROM Manual Therapy Techniques to Include: Mobilization and Soft tissue mobilization For the Purpose of:: To decrease pain, To decrease swelling/inflammation, To increase ROM, To improve nutrient delivery to tissue, To increase oxygenation perfusion and To improve muscle performance and motor function Cryotherapy (ice pack, ice massage): Yes Vasopneumatic device: Yes For the Purpose of:: To decrease pain, To decrease swelling/inflammation, To increase ROM, To improve nutrient delivery to tissue, To increase oxygenation perfusion, To improve muscle performance and motor function and To improve ability to perform ADL's Text: Thank you for the opportunity to evaluate your patient. For Medicare and Medicare HMO plans, please review the plan of care and approve it. It will need to be FAXED BACK to us at [phone] for Medicare purposes. For Medicare only, by signing this I certify the plan of care. Please let me know if there are questions or concerns regarding this plan of care. Physician Signature: Date:
--- NOTE | 2023-08-15 07:59 | HP.PTREVAL ---
Re-Evaluation Intro: ROSARIO LIGHT, It has been my pleasure to treat CARA GALVAN over the last 10 visits for R ANN DOS: 06/20/23. Please see the progress note below for an update on the physical therapy plan of care! Subjective Subjective: Patient reports that she fell July 12 and broke her knee cap- she saw Dr. Haynes who put her in immobilizer and she had another surgery July [address] Haynes- that did not hold- ended up with a second opinion at [facility] by Dr. Light. He wants her to attempt rehab and thinks that she can she does not need to have a surgery. She does have pain in the knee worst 4-5/10- agg by getting up and moving- eases by sitting with it bent. Objective Objective/Function: Posture: fair throughout tx session Gait: antalgic- FWW- decreased stance on the right LE- poor heel/toe pattern HR/TR: able with UE A SLS: weight shift only ROM: 0-98 Palpation: tender along medial and lateral joint line Strength: Ankle: 5/5, Knee: flexion: 17 lbs, Extn: 11 lbs Observation: incision healing well no s/s of infection Plan Plan Plan: 08/15/23: Continue 2-3x a week for 4 weeks-with below POC- d/c vaso for edema control IE: 1)Start with ROM of R knee, work on progressing end range extension and flexion to 120deg. 2) Vaso and ice for edema control. 3) add in quad and hip muscle activation progressing to functional strengthening. 4) gait progression away from AD, stair negotiation. Balance/Gait/Functional tests Balance/Special Test Scores TUG Test Time Seconds: 34 Tug Test: >30sec.=impaired mobility 30 Second Chair Rise Test Seconds: 5 WOMAC Total Score: 51 WOMAC Percentage: 46.8800 Goals Goals Goal 1:: LTG: Pt. to be I with HEP for ROM and strengthening of BLEs. Goal Time Frame: 4-6 Weeks Goal Progress: Progressing Goal 2:: STG: Pt. to have increased R knee ROM to 0-0-110deg. Goal Time Frame: 2 Weeks Goal Progress: Progressing Goal 3:: LTG: Pt. to have increased R knee ROM to 0-0-120deg allowing for good tolerance to all functional mobility. Goal Time Frame: 4-6 Weeks Goal Progress: Progressing Goal 4:: LTG: Pt. to ambulate with normal gait pattern without increased in R knee pain. Goal Time Frame: 4-6 Weeks Goal Progress: Progressing Goal 5:: LTG: Pt. to negotiate steps with 1 HR with reciprocal pattern. Goal Time Frame: 4-6 Weeks Goal Progress: Progressing Anticipated Interventions Anticipated Interventions Patient/Client Instruction: Educate patient on: Condition, Plan of Care, Risk Factors and Benefits of Fitness Program For the Purpose of:: To improve health and function, To foster healthy habits, To improve decision making, To facilitate caregiver knowledge, To improve self management, To prevent re-injury, To improve ability to perform tasks related to life management and To improve tolerance to ADL's Therapeutic Exercise to Include: Strength training, Power training, Endurance training, Balance training, Flexibilty training, Gait and locomotor training, Passive ROM and Active ROM For the Purpose of:: To decrease pain, To increase ROM, To improve nutrient delivery to tissue, To increase oxygenation perfusion, To improve muscle performance and motor function, To improve ability to perform ADL's, To increase tolerance to activity/condition/position, To decrease soft tissue restriction and To increase flexibility/ROM Manual Therapy Techniques to Include: Mobilization and Soft tissue mobilization For the Purpose of:: To decrease pain, To decrease swelling/inflammation, To increase ROM, To improve nutrient delivery to tissue, To increase oxygenation perfusion and To improve muscle performance and motor function Cryotherapy (ice pack, ice massage): Yes Vasopneumatic device: Yes For the Purpose of:: To decrease pain, To decrease swelling/inflammation, To increase ROM, To improve nutrient delivery to tissue, To increase oxygenation perfusion, To improve muscle performance and motor function and To improve ability to perform ADL's Re-Evaluation Ending Re-evaluation ending: Please do not hesitate to contact me at [phone] by phone or if you have questions or concerns regarding this new plan of care! Sincerely, Roxana Murry DPT
--- NOTE | 2023-10-05 13:20 | HP.PTDCSUM_ITS ---
Discharge Summary D/C summary: It has been my pleasure to treat CARA GALVAN referred by ROSARIO LIGHT, with the diagnosis of R TKA DOS: 06/20/23 for a total of 8 visit(s). Discharge Date: Please see the following information for a summary of their discharge status. Subjective Subjective: Patient reports that she saw the MD and he is happy with how she is doing- she plans to go to [employer] and she is fully I and has her cane with her. She went to the [facility] in [place] and she did great. Pain R knee: Pain Intensity (Out of 10): 0 Overall Improvement % Improvement: 90 Objective Objective/Function: Posture: fair throughout tx session Gait: slightly antalgic- no AD HR/TR: able with UE A SLS: 5 seconds ROM: 0-117 Strength: Ankle: 5/5, Knee: flexion: 22 lbs, Extn: 20 lbs Observation: well healed Steps: non recip per MD request Goals Goal 1:: LTG: Pt. to be I with HEP for ROM and strengthening of BLEs. Goal Progress: Goal Met Goal 2:: STG: Pt. to have increased R knee ROM to 0-0-110deg. Goal Progress: Goal Met Goal 3:: LTG: Pt. to have increased R knee ROM to 0-0-120deg allowing for good tolerance to all functional mobility. Goal Progress: Progressing Goal 4:: LTG: Pt. to ambulate with normal gait pattern without increased in R knee pain. Goal Progress: Progressing Goal 5:: LTG: Pt. to negotiate steps with 1 HR with reciprocal pattern. Goal Progress: Progressing Plan Plan: 10/05/23: Discharge to I home exercise program- encouraged to call if questions or concerns. 09/13/23: GYM PROGRAM-machines for [employer] to [employer] (leg press, h amstring curls, hip abd, hip add, etc)- start with light weights and low repetitions-no leg extn machine. Continue to work towards reciprocal stairs- NO VASO 08/15/23: Continue 2-3x a week for 4 weeks-with below POC- d/c vaso for edema control IE: 1)Start with ROM of R knee, work on progressing end range extension and flexion to 120deg. 2) Vaso and ice for edema control. 3) add in quad and hip muscle activation progressing to functional strengthening. 4) gait progression away from AD, stair negotiation. D/C Information d/c sentence: If there are questions or concerns regarding this patient's physical therapy, please feel free to call me at [phone]. Thank you for the referral of this patient. Sincerely, Roxana Murry, DPT Balance/Gait/Functional tests Balance/Special Test Scores Lower Extremity Functional Score: 60 TUG Test Time Seconds: 34 Tug Test: >30sec.=impaired mobility 30 Second Chair Rise Test Seconds: 5 WOMAC Total Score: 51 WOMAC Percentage: 46.8800 Improvement % Improvement: 90
== END 2023-10-05 19:00 | disposition home or self-care (01) ==
LOC: PT 12:30
PROVIDERS: PCP Internal Medicine
DX: Z96.651 Presence of right artificial knee joint (principal); Z47.1 Aftercare following joint replacement surgery
CPT/HCPCS: 97016; 97110; 97161; 97164; 97530

== ENCOUNTER 2023-11-30 06:26 | Day surgery (SDC) | payer BC, SELFPAY ==
[2023-11-30] VITALS (8 sets, daily range): BP systolic 97–144; BP diastolic 47–85; PULSE 56–60; RESP 16; TEMP 36.2–36.6; O2SAT 96–100; BMI 35.5
[2023-11-30] MEDS: Lactated Ringers 1,000 ML 15 ML IV (06:49)
--- NOTE | 2023-11-30 06:51 | PRE.ANES_ITS ---
ASA Classification* ASA Classification ASA Classification: 2 Assessment & Plan Anesthesia* Anesthesia Assessment Anesthesia Assessment: Discussed sedation and/or anesthesia options, risks, benefits, and alternatives with patient/parents/legal guardian/POA. Questions invited. The patient/parents/legal guardian/POA seems to understand and agrees to proceed with anesthesia plan. Reviewed the physical assessment, medical history, allergy history and patient home medications list prior to surgery/procedure/anesthetic and documented any changes. Performed airway and anesthesia risk assessments. Anesthesia Type Anesthesia Type: MAC Anesthesia Focused Assessment* Temperature: 97.8 F Pulse Rate: 57 Blood Pressure: 144/63 Respiratory Rate: 16 Pulse Ox: 98 Airway Assessment Mouth opens: >3 cm Mallampati Score: II Focused Labs Anesthesia Preop lab: CBC WBC 5.7 K/mm3 (4.4-11.0) 12/05/22 11:53 RBC 4.67 M/mm3 (4.2-5.4) 12/05/22 11:53 Hgb 13.2 g/dL (12.0-15.0) 12/05/22 11:53 Hct 41.3 % (37-47) 12/05/22 11:53 Plt Count 347 K/mm3 (150-450) 12/05/22 11:53 CHEMISTRY Potassium 4.0 mmol/L (3.5-5.1) 12/05/22 11:53 Sodium 138 mmol/L (136-145) 12/05/22 11:53 BUN 25 mg/dL (7-18) H 12/05/22 11:53 Creatinine 0.73 mg/dL (0.55-1.02) 12/05/22 11:53 Glucose 75 mg/dL (74-106) 12/05/22 11:53 TSH 2.44 uIU/mL (0.358-3.74) 06/12/23 13:49 COAG Pre-Assessment Diagnosis/Proposed Procedure Planned Operative Procedure(s): COLONOSCOPY Anesthesia History 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 When Was Last Pacemaker Check QUESTION #4 FULL TEXT: You/Your Family Experience fever (hyperthermia) with Anesthesia Last Oral Intake Last Oral intake: Last Oral Intake NPO since Meds taken in AM with sips of Yes 11/30/23 06:41 water? Meds patient instructed to take am of surgery PONV PONV - aqueduct and reservoir keeper: PONV - aqueduct and reservoir keeper Female Yes 11/28/23 14:20 HX of Motion Sickness No 11/28/23 14:20 HX of N/V After Surgery No 11/28/23 14:20 Non-Smoker Yes 11/28/23 14:20 Duration of Surgery greater No 11/28/23 14:20 than 60 minutes Number of Risk Factors 2 11/28/23 14:20 PONV Score Moderate Risk 11/28/23 14:20 Height & Weight Height & Weight: Anesthesia: Height & Weight Height 5 ft 4 in 11/30/23 06:41 Weight: 94 kg 11/30/23 06:41 Body Mass Index (BMI) 35.5 11/30/23 06:41 Respiratory Assessment Respiratory Assessment - aqueduct and reservoir keeper: Respiratory Tract Infection Hx - aqueduct and reservoir keeper Hx Respiratory Tract Infection No 11/28/23 14:20 STOP Sleep Apnea STOP Sleep Apnea - aqueduct and reservoir keeper: STOP Sleep Apnea - aqueduct and reservoir keeper Hx Hypertension Yes: CONTROLLED 11/28/23 14:20 Hx Sleep Apnea No 11/28/23 14:20 CPAP BIPAP Do you snore loudly (louder No 11/28/23 14:20 than talking or can be heard Do you often feel tired/ No 11/28/23 14:20 fatigued/ sleepy during daytime? Has anyone observed you stop No 11/28/23 14:20 breathing during sleep? STOP Results Negative 11/28/23 14:20 QUESTION #5 FULL TEXT : Do you snore loudly (louder than talking or can be heard through closed doors)? Tobacco Use History Tobacco Use History - aqueduct and reservoir keeper: Tobacco Use History - aqueduct and reservoir keeper Tobacco Use Smoking Status Former smoker 11/28/23 14:20 Hx Tobacco Use No 11/28/23 14:20 Years Smoking Packs Smoked per Day Smoking Cessation Date was No - quit smoking greater 11/28/23 14:20 within the last 15 years than 15 years ago Hx Smoking Cessation Date Hx Smoking Cessation Counseling Hematologic Medial History Hematologic Hx - aqueduct and reservoir keeper: Hematologic Medical Hx - perlite grinder Hx of Blood Transfusion No 11/28/23 14:20 Hx of Transfusion in last 3 No 11/28/23 14:20 Months Date of Last Transfusion (if within last 3 months) Ever experience any problems No 11/28/23 14:20 with transfusion(s)? Specify any problems Hx of Preganancy in last 3 No 11/28/23 14:20 Months Nurse Filling Out Transfusion [id number] 11/28/23 14:20 & Questions: Date: 11/28/23 11/28/23 14:20 Time: 14:26 11/28/23 14:20 Patient unable to answer at this time (ie. confused, unrespo /Reproduction History /Reproductive History - aqueduct and reservoir keeper: /Reproductive Hx- aqueduct and reservoir keeper Hx Now Gestational Age (in weeks): EDC: Hx Hx Para Hx Section SAB No 03/27/23 11:18 Active Medications Active Medications: Current Medications Generic Name Dose Route Start Last Admin Trade Name Freq PRN Reason Stop Dose Admin Lactated Ringer's 1,000 mls @ 15 mls/hr 11/30/23 06:45 11/30/23 06:49 IV 15 mls/hr .Q48H CAYDEN Administration PFSH Medical History Wears glasses Wears contact lenses Ambulates with cane Alcohol use LBBB (left bundle branch block) Personal history of colonic polyps Family history of colon cancer in father Preoperative evaluation to rule out surgical contraindication PAC (premature atrial contraction) Health care maintenance Varicose veins of both legs with edema Arrhythmia Colon cancer screening GERD (gastroesophageal reflux disease) Swallowing difficulty Early satiety Loss of appetite Anxiety and depression Other dietary vitamin B12 deficiency anemia GERD without esophagitis Heart murmur Hypertension Gastrointestinal problem UTI (urinary tract infection) Back problem Arthritis Home Medications ?Medication ?Instructions ?Recorded ?Last Taken ?Type cetirizine 10 mg capsule (Zyrtec) 10 mg PO PRN PRN Allergies 05/31/18 Unknown History multivitamin (Daily Multiple 1 ea PO DAILY 05/31/18 Unknown History tablet) compress.stocking,knee,reg,lrg #2 ea 12/05/22 Unknown Rx hydrochlorothiazide 12.5 mg capsule See Rx Instructions .Route 06/07/23 Unknown Rx .COMPLEX #90 caps losartan 100 mg tablet 100 mg PO DAILY #90 TABLETS 06/07/23 11/30/23 Rx trazodone 50 mg tablet 50 mg PO QHS PRN insomnia #90 tabs 06/07/23 Unknown Rx alprazolam 0.25 mg tablet (Xanax) 0.25 mg PO Q8 PRN anxiety #12 tabs 07/26/23 Unknown Rx paroxetine HCl 20 mg tablet See Rx Instructions .Route 08/14/23 11/30/23 Rx .COMPLEX #90 tabs omeprazole 40 mg capsule,delayed See Rx Instructions .Route 11/29/23 11/30/23 Rx release .COMPLEX #90 caps Allergy/AdvReac Type Severity Reaction Status Date / Time amoxicillin Allergy Intermediate Abd Verified 11/30/23 06:40 cramps/diarrhea grass pollen Allergy Itching Verified 11/30/23 06:40 pollen extracts Allergy Itching Verified 11/30/23 06:40 Family History Sister Anemia Arthritis Depression Hypertension Peptic ulcer disease Mother Anxiety Arthritis Depression Hypertension Hormone imbalance Father Arthritis Colon cancer Hypertension Melanoma Skin cancer Grandmother CVA (cerebral vascular accident) Surgical History Hx of colonoscopy H/O knee surgery delivery delivered H/O: hysterectomy Social History adopted: No household members: spouse and children housing: house current occupational status: employed 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
--- NOTE | 2023-11-30 07:00 | PCM.HP.STD ---
HPI - General General Date of Admission: 11/30/23 Date of Service: 11/30/23 Chief Complaint: Screening colonoscopy HPI Narrative CARA GALVAN, is a 58 F who presents today for screening colonoscopy. She had a colonoscopy in 2019 which was normal. She comes in for surveillance colonoscopy as she has had polyps in the past. She is not have any abdominal pain. Stomach cramping. She any chest pain shortness of breath. Overall she is in very good health. FORMERLY [facility] Medical History Wears glasses Wears contact lenses Ambulates with cane Alcohol use LBBB (left bundle branch block) Personal history of colonic polyps Family history of colon cancer in father Preoperative evaluation to rule out surgical contraindication PAC (premature atrial contraction) Health care maintenance Varicose veins of both legs with edema Arrhythmia Colon cancer screening GERD (gastroesophageal reflux disease) Swallowing difficulty Early satiety Loss of appetite Anxiety and depression Other dietary vitamin B12 deficiency anemia GERD without esophagitis Heart murmur Hypertension Gastrointestinal problem UTI (urinary tract infection) Back problem Arthritis Home Medications ?Medication ?Instructions ?Recorded ?Last Taken ?Type cetirizine 10 mg capsule (Zyrtec) 10 mg PO PRN PRN Allergies 05/31/18 Unknown History multivitamin (Daily Multiple 1 ea PO DAILY 05/31/18 Unknown History tablet) compress.stocking,knee,reg,lrg #2 ea 12/05/22 Unknown Rx hydrochlorothiazide 12.5 mg capsule See Rx Instructions .Route 06/07/23 Unknown Rx .COMPLEX #90 caps losartan 100 mg tablet 100 mg PO DAILY #90 TABLETS 06/07/23 11/30/23 Rx trazodone 50 mg tablet 50 mg PO QHS PRN insomnia #90 tabs 06/07/23 Unknown Rx alprazolam 0.25 mg tablet (Xanax) 0.25 mg PO Q8 PRN anxiety #12 tabs 07/26/23 Unknown Rx paroxetine HCl 20 mg tablet See Rx Instructions .Route 08/14/23 11/30/23 Rx .COMPLEX #90 tabs omeprazole 40 mg capsule,delayed See Rx Instructions .Route 11/29/23 11/30/23 Rx release .COMPLEX #90 caps Allergy/AdvReac Type Severity Reaction Status Date / Time amoxicillin Allergy Intermediate Abd Verified 11/30/23 06:40 cramps/diarrhea grass pollen Allergy Itching Verified 11/30/23 06:40 pollen extracts Allergy Itching Verified 11/30/23 06:40 Family History Sister Anemia Arthritis Depression Hypertension Peptic ulcer disease Mother Anxiety Arthritis Depression Hypertension Hormone imbalance Father Arthritis Colon cancer Hypertension Melanoma Skin cancer Grandmother CVA (cerebral vascular accident) Surgical History Hx of colonoscopy H/O knee surgery delivery delivered H/O: hysterectomy Social History adopted: No household members: spouse and children housing: house current occupational status: employed 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 leisure activities: exercise history of recent travel: No sexually active: Yes Smoking Status: Former smoker alcohol intake: current details: COUPLE TIMES WEEK GLASS OF WINE substance use type: does not use well-balanced diet: about half the time caffeine: Yes eating out: 1-3 times/week during the past year weight has: increased > 10 lbs what type of physical activity do you participate in: walking sharon/denominational: Muslim seatbelt use: always do you feel safe at home: Yes ROS Review of Systems ROS Unobtainable: other Constitutional Constitutional: Denies fatigue, fever(s), poor appetite, weight gain or weight loss ENT HEENT: Denies mouth lesions Cardiovascular Cardiovascular: Denies abdominal bloating, abdominal edema or abdominal pain Respiratory/Chest Respiratory/Chest: Denies change in mental status, change in phlegm color, chest congestion or chest tightness Gastrointestinal Gastrointestinal: Denies belching, bloating, change in bowel habits, change in stool character, chewing difficulty, coffee ground emesis, constipation, cramping, diarrhea, dyspepsia, dysphagia, early satiety, excessive flatus, fecal incontinence, heartburn, hematemesis, hematochezia, hemorrhoids, loose stools, melena, nausea, odynophagia, rectal bleeding, tenesmus, vomiting or weight changes Genitourinary Genitourinary: Denies abdominal discomfort, burning urination or itching Musculoskeletal Musculoskeletal: Reports as per HPI; Denies muscle weakness or myalgias Integumentary Integumentary: Denies jaundice Neurologic Neurologic: Denies lack of coordination or weakness Psychiatric Psychiatric: Denies confusion, depression, memory loss, mood swings, paranoia or suicidal ideation Endocrine Endocrinology: Denies systems reviewed and no addt'l complaints, except as documented Hematologic/Lymphatic Hematologic/Lymphatic: Denies anemia, easy bleeding, easy bruising or lymphadenopathy Allergic/Immunologic Allergic/Immunologic: Denies systems reviewed and no addt'l complaints, except as documented Vital Signs Vital Signs Vital Signs: 11/30/23 06:41 11/30/23 06:41 11/30/23 06:51 Temperature 97.8 F 97.8 F Temperature Source Temporal Pulse Rate 57 L 57 L Respiratory Rate 16 16 Respiratory Pattern Normal Blood Pressure 144/63 H 144/63 H Blood Pressure Mean 90 Blood Pressure Source Monitor Blood Pressure Position Semi-Fowlers Blood Pressure Location Right Arm Pulse Ox 98 98 Oxygen Delivery Method Room Air Weight Weight: 207 lb 3.752 oz Body Mass Index (BMI) 35.5 Physical Exam Const alert General Appearance: cooperative Orientation / Consciousness: oriented to person HEENT hearing grossly normal bilaterally Head and Scalp: normal to inspection Face and Sinus: face symmetric Nose: external nose normal Mouth: oral and palatal mucosa normal Eyes conjunctivae normal General Eye: normal appearance of both eyes Neck full ROM General: normal visual inspection Lymph Lymphatic: no lymphadenopathy noted Chest inspection of chest normal and palpation of chest normal Chest: symmetrical chest wall rise Resp normal respiratory effort Effort and Inspection: able to speak in complete sentences Cardio regular rate GI non-distended Percussion: normal to percussion Rectal Exam: deferred Neuro Speech: speech normal Gait (Neuro): normal gait Assessment & Plan Assessment/Plan (1) Encounter for screening for malignant neoplasm of colon: PLAN: She was explained alternatives, risk, benefits including not withstanding bleeding, infection, sepsis, perforation, need for emergent surgery and . She will have an ASA of 3.
--- NOTE | 2023-11-30 07:30 | COLBX_PTH ---
PATIENT: CARA GALVAN LOC: EN U#:[id number] AGE/SX: 58/F ROOM: RE11/30/[address]: Dr. Hemant Gan DO : 1965 BED: DIS: 11/30/2023 SPEC #: [id number] RECD: 11/30/23 09:25 STATUS: KRUPA VILMA #: [id number] SHAHIDA: 11/30/23 07:[address]: Hemant Gan DEPT: SURGICAL PATHOLOGY RECD BY: Diana Espinoza ENTERED: 11/30/23 10:49 SP TYPE: COLON BX OTHR DR: Dr. Kiel Whitten MD Tissues: Sigmoid colon biopsy Procedures: Surgery Specimen Level IV HEADER OPERATION: Colonoscopy with biopsy PRE-OP DIAGNOSIS: Encounter for screening for malignant neoplasm of colon TISSUE SUBMITTED: Sigmoid polyp biopsy MICROSCOPIC DIAGNOSIS Sigmoid polyp, biopsy: Hyperplastic polyp. SJ. 12/01/2023 MICROSCOPIC DESCRIPTION Slides are reviewed. GROSS DESCRIPTION Received in fixative is one container labeled with the patient's name and designated Sigmoid polyp biopsy. The specimen consists of one irregular fragment of light parson soft tissue that measures 0.4 x 0.4 x 0.1 cm. The specimen is totally submitted in one cassette. MARLENY/ 11/30/2023 TC:1 CPT:04916
--- NOTE | 2023-11-30 08:12 | OP.COLON_ITS ---
Patient Name: Valentina Schreiber Procedure Date: 11/30/2023 7:40 AM Date of : 1965 Age: 58 Procedure: Colonoscopy Indications: High risk colon cancer surveillance: Personal history of colonic polyps Providers: Hemant Gan DO Referring MD: Kiel Whitten MD Medicines: Monitored Anesthesia Care Patient Profile: This is a 58 year old female. Refer to note in patient chart for documentation of history and physical. Last Colonoscopy: 5 years ago. Complications: No immediate complications. Procedure: Pre-Anesthesia Assessment: - Prior to the procedure, a History and Physical was performed, and patient medications and allergies were reviewed. The patient is competent. The risks and benefits of the procedure and the sedation options and risks were discussed with the patient. All questions were answered and informed consent was obtained. Patient identification and proposed procedure were verified by the physician in the pre-procedure area. Mental Status Examination: alert and oriented. Airway Examination: normal oropharyngeal airway and neck mobility. Respiratory Examination: clear to auscultation. CV Examination: normal. Prophylactic Antibiotics: The patient does not require prophylactic antibiotics. Prior Anticoagulants: The patient has taken no anticoagulant or antiplatelet agents except for NSAID medication. ASA Grade Assessment: II - A patient with mild systemic disease. After reviewing the risks and benefits, the patient was deemed in satisfactory condition to undergo the procedure. The anesthesia plan was to use monitored anesthesia care (MAC). Immediately prior to administration of medications, the patient was re-assessed for adequacy to receive sedatives. The heart rate, respiratory rate, oxygen saturations, blood pressure, adequacy of pulmonary ventilation, and response to care were monitored throughout the procedure. The physical status of the patient was re-assessed after the procedure. After I obtained informed consent, the scope was passed under direct vision. Throughout the procedure, the patient's blood pressure, pulse, and oxygen saturations were monitored continuously. The Colonoscope was introduced through the anus and advanced to the cecum, identified by appendiceal orifice and ileocecal valve. The colonoscopy was performed without difficulty. The patient tolerated the procedure well. The quality of the bowel preparation was adequate. The ileocecal valve, appendiceal orifice, and rectum were photographed. Scope In: 7:53:51 AM Scope Withdrawal Time 0 hours 7 minutes 52 seconds Scope Out: 8:07:56 AM Total Procedure Duration Time 0 hours 14 minutes 5 seconds Findings: The perianal and digital rectal examinations were normal. Multiple small and large-mouthed diverticula were found in the recto-sigmoid colon and sigmoid colon. A 7 mm polyp was found in the recto-sigmoid colon. The polyp was sessile. The polyp was removed with a jumbo cold forceps. Resection and retrieval were complete. Verification of patient identification for the specimen was done. Estimated blood loss was minimal. Impression: - Diverticulosis in the recto-sigmoid colon and in the sigmoid colon. - One 7 mm polyp at the recto-sigmoid colon, removed with a jumbo cold forceps. Resected and retrieved. Recommendation: - Repeat colonoscopy in 5 years for surveillance. - Continue present medications. Procedure Code(s): --- Professional --- 72902, Colonoscopy, flexible; with biopsy, single or multiple CPT copyright 2021 [employer]. All rights reserved. The codes documented in this report are preliminary and upon hospital coder review may be revised to meet current compliance requirements. Hemant Gan DO 11/30/2023 8:12:14 AM This report has been signed electronically. Number of Addenda: 0 Note Initiated On: 11/30/2023 7:40 AM
--- NOTE | 2023-11-30 08:12 | OP.CCLET_ITS ---
11/30/2023 Kiel Whitten MD [address] [place] [address] [place] [address] Re : Colonoscopy procedure for Valentina Schreiber Dear Dr. Whitten This procedure was performed on November. My impressions and recommendations are as follows: Impressions : - Diverticulosis in the recto-sigmoid colon and in the sigmoid colon. - One 7 mm polyp at the recto-sigmoid colon, removed with a jumbo cold forceps. Resected and retrieved. Recommendations : - Repeat colonoscopy in 5 years for surveillance. - Continue present medications. My findings are described in the full procedure note, which is enclosed. If I can be of further assistance, please feel free to contact me at . Sincerely, Hemant Gan, 11/30/2023 8:12:14 AM This report has been signed electronically.
--- NOTE | 2023-11-30 08:17 | PCM.POST.ANE ---
Anesthesia: Postop Eval I Current Vital Signs Temperature: 97.2 F Pulse Rate: 57 Blood Pressure: 106/60 Respiratory Rate: 16 Pulse Ox: 100 Oxygen Delivery Method: Room Air Assessment Airway patent: Yes Spontaneous unlabored respirations: Yes Mental status: Awake and Calm nausea: No Vomiting: No Anesthesia Complication: No Fluid Hydration Crystalloid volume administer (ml): 600 Total IV fluid infused: 600 Progress Note Anesthesia document: Postop Eval 1 completed: Yes
--- NOTE | 2023-11-30 08:50 | PCM.POSTANE2 ---
Anesthesia Postop Eval I Sum Postop Eval Completion status Anesthesia document: Postop Eval 1 completed: Yes Anesthesia Postop Eval I Summary Anesthesia Postop Eval I Summary: Anesthesia Postop Eval I: Assessment Summary Airway patent Yes 11/30/23 08:18 [email or web address] Spontaneous unlabored Yes 11/30/23 08:18 [email or web address] respirations Mental status Awake,Calm 11/30/23 08:18 [email or web address] nausea No 11/30/23 08:18 [email or web address] Vomiting No 11/30/23 08:18 [email or web address] Anesthesia Postop Eval I: Fluid Summary Crystalloid volume administer 600 11/30/23 08:18 [email or web address] (ml) Colloids volume administered ( ml) Blood Product volume administered (ml) Total IV fluid infused 600 11/30/23 08:18 [email or web address] Anesthesia Postop Eval I: Summary Notes Anesthesia Complication No 11/30/23 08:18 [email or web address] Anesthesia Complication Comment: Post-operative progress note Anesthesia: Postop Eval II Evaluation Mental status: Awake Pain Level: 0 nausea: No Vomiting: No
== END 2023-11-30 09:09 | disposition home or self-care (01) ==
LOC: EN 06:27 → AC 06:29
PROVIDERS: PCP Internal Medicine; Referring Provider Internal Medicine; Visit Provider Internal Medicine Gastroenterology
PROC: 0DJD8ZZ Inspection of Lower Intestinal Tract, Via Natural or Artificial Opening Endoscopic (ICD-10-PCS; CPT 45378; principal; 2023-11-30 07:25)
DX: Z12.11 Encounter for screening for malignant neoplasm of colon (principal); K63.5 Polyp of colon; K57.30 Diverticulosis of large intestine without perforation or abscess without bleeding; K21.9 Gastro-esophageal reflux disease without esophagitis; I10 Essential (primary) hypertension; Z79.899 Other long term (current) drug therapy; Z86.0100 Personal history of colon polyps, unspecified; Z87.891 Personal history of nicotine dependence; Z80.0 Family history of malignant neoplasm of digestive organs
CPT/HCPCS: 45380; 88305; J7120; J2405

== ENCOUNTER → 2024-03-19 | Outpatient (CLI) | payer BC, SELFPAY ==
--- NOTE | 2024-03-19 12:12 | BI_ITS ---
MAMMOGRAPHY - BILATERAL SCREENING REASON FOR EXAM: Female, 58 years old. Routine annual screening examination. PERTINENT HISTORY: Non-contributory. TECHNIQUE: Digital bilateral breast alejandra (3D mammographic acquisition) in the CC and MLO projections. 2-D mediolateral oblique (MLO) and craniocaudad (CC) views of both breasts were obtained. CAD: Full Field Digital Mammography with Computer Added Detection was performed. COMPARISON: Comparison is made with prior study dated March 17, 2023 and February 09, 2022. FINDINGS: Breast Composition: There are scattered areas of fibroglandular density. There are no dominant masses or suspicious calcifications. Stable small benign-appearing bilateral axillary lymph nodes. No other significant abnormalities are identified. There has been no significant change since the prior study. BI/SCRN MAMM (CAD)W/ALEJANDRA BILAT IMPRESSION: Stable bilateral screening mammogram. Yearly follow-up mammogram recommended. (A) ASSESSMENT CATEGORY: BIRADS Category 2: Benign. A letter regarding these results will be sent to the patient by the facility within 30 days. Approximately 10% of breast cancers are not detected by mammography. A normal mammogram should not delay biopsy of a clinically suspicious abnormality. [id number] Electronically Signed: Dusty Camilo MD at 13:57 EST ,
== END | disposition home or self-care (01) ==
LOC: OPBI 12:10
PROVIDERS: PCP Internal Medicine; Referring Provider Registered Nurse; Visit Provider Registered Nurse
DX: Z12.31 Encounter for screening mammogram for malignant neoplasm of breast (principal)
CPT/HCPCS: 77063; 77067

== ENCOUNTER → 2024-03-27 | Outpatient (CLI) | payer BC, SELFPAY ==
[2024-03-27 15:22] LABS: Basophil# 0.04 X10^3/uL; Basophil% 0.6 % (0-1); Eosinophil# 0.21 X10^3/uL; Eosinophils% 3.3 % (0-5); Hematocrit 39.7 % (37-47); Hemoglobin 12.4 g/dL (12.0-15.0); Lymphocyte % 37.7 % (19-41); Mean Corp Hgb Conc 31.2 g/dL (32-36); Mean Corpuscular Hgb 26.3 pg (27.0-32.0); Mean Corpuscular Volume 84.1 fL (81-99); Mean Platelet Vol. 9.9 fl (6.2-12.0); Monocyte# 0.71 X10^3/uL; Monocyte% 11.2 % (0-10); NRBC Flagged by Analyzer 0 % (0-5); Neutrophil # 2.99 X10^3/uL (2.7-7.7); Platelet Count 322 K/mm3 (150-450); RBC Distribution Width CV 13.2 % (11.6-14.6); RBC Distribution Width SD 40.9 fl (35.1-43.9); Red Blood Count 4.72 M/mm3 (4.2-5.4); White Blood Count 6.4 K/mm3 (4.4-11.0)
[2024-03-27 15:42] LABS: ALB/GLOB Ratio 1.2 RATIO (0.9-2.4); AST(SGOT) 19 U/L (15-37); Alanine Aminotransfer ALT/SGPT 33 U/L (13-56); Albumin, Serum 4.2 g/dL (3.2-5.0); Alkaline Phosphatase 63 U/L (45-117); Anion Gap 5 (5-15); BUN 26 mg/dL (7-18); BUN/Creat Ratio 40.4 RATIO (10-20); Calcium,Total 9.3 mg/dL (8.5-10.1); Chloride 102 mmol/L (98-107); Cholesterol 222 mg/dL (200); Creatinine, Serum 0.64 mg/dL (0.55-1.02); EST Glomerular Filtration Rate 100 mL/min (>60); Est Glom Filt Rate - Afr Amer 121 mL/min (>60); Globulin 3.4 g/dL (2.2-4.2); Glucose 86 mg/dL (74-106); High Density Lipoprotein 81 mg/dL; Potassium 4.4 mmol/L (3.5-5.1); Protein, Total 7.6 g/dL (6.4-8.2); Sodium Level 139 mmol/L (136-145); Triglycerides 93 mg/dL; Very Low Density Lipoprotein 19 mg/dL (5-40)
== END | disposition home or self-care (01) ==
LOC: BIMLAB 12:13
PROVIDERS: PCP Internal Medicine; Visit Provider Internal Medicine
DX: I10 Essential (primary) hypertension (principal)
CPT/HCPCS: 36415; 80053; 80061; 85025

== ENCOUNTER → 2024-04-01 | Outpatient (CLI) | payer BC, SELFPAY | END | disposition home or self-care (01) | PROVIDERS: PCP Internal Medicine; Referring Provider Internal Medicine; Visit Provider Internal Medicine | DX: R79.89 Other specified abnormal findings of blood chemistry (principal) | CPT/HCPCS: 82274 ==

== ENCOUNTER → 2024-04-03 | Outpatient (CLI) | payer BC, SELFPAY | END | disposition home or self-care (01) | LOC: LABSPEC 13:00 | PROVIDERS: PCP Internal Medicine; Referring Provider Internal Medicine; Visit Provider Internal Medicine | DX: R94.4 Abnormal results of kidney function studies (principal) | CPT/HCPCS: 82274 ==